=== PATIENT | female | born 1965 | race Caucasian/White ===

== ENCOUNTER 2016-04-11 21:43 | Observation (INO) | payer OTHER ==
[~2016-04-11] VITALS: Ht 157.5 cm; Wt 103.4 kg
[~2016-04-11 21:43] MED LIST: ASPI-480 PO; CHRO1TAB7 PO; LEVO75TA6 PO; LISI-593 PO; METH4TAB PO; NAPR-689 PO; TRAM-42 PO; VARE1TAB19; [UNRECOGNIZED DRUG - REMARK] PO
--- OUTSIDE RECORDS SUMMARY | 2016-04-11 21:49 | XMS REPORT | Continuity of Care Document ---
Author Author [facility] Organization [facility] Address Unknown Phone Unavailable Allergies Medications Problems Procedures Results Encounters ACCT No. Visit Date/Time Discharge Status Pt. Type Provider Facility Loc./Unit Complaint [id number] 05/18/2013 22:03:00 2013 10:50:00 DIS Inpatient [id number] 08/26/2012 07:39:00 2012 23:59:59 CLS Outpatient [id number] 08/13/2012 09:48:00 2012 23:59:59 CLS Outpatient
--- NOTE | 2016-04-11 22:27 | ED Cough/URI ---
General Chief Complaint: Respiratory Problems Stated Complaint: PNEUMONIA;VOMITING;COUGH Nursing Triage Note: PT C/O SOA, FEVER, COUGH, FOR 3 WEEKS. Source: patient Exam Limitations: no limitations History of Present Illness Time seen by provider: 22:23 Initial Comments Patient complains of cough productive of yellow sputum and shortness of air weakness malaise for the past 2 weeks. It is getting worse. She reports subjective fevers. Allergies and Home Medications Allergies Coded Allergies: hydrocodone (Verified Allergy, Unknown, 09/06/08) Home Medications Naproxen 500 Mg Tablet #0 500 MG PO Q12H PRN PRN PAIN Prescribed by: MARGARITO LEDESMA on 05/19/13 0334 Tramadol HCl 50 Mg Tablet #30 50 MG PO Q6H PRN PRN PAIN Prescribed by: AKANKSHA MONTAGUE on 03/22/15 1718 Constitutional: fever malaise weakness Respiratory: cough Cardiovascular: no symptoms reported Genitourinary: no symptoms reported All Other Systems Reviewed Negative Unless Noted: Yes Past Lboxtrl-Trmdhb-Rrmwwn Hx Patient Social History Recent Foreign Travel: No Contact w/Someone Who Travel: No Recent Infectious Disease Expo: No Immunizations Up To Date Date of Pneumonia Vaccine: Nov 18, 2010 Date of Influenza Vaccine: Nov 18, 2012 Seasonal Allergies Seasonal Allergies: Yes Surgeries HX Surgeries: Yes (JAWS RECONSTRUCTED 14 YRS OLD) Surgeries: Gallbladder Respiratory Hx Respiratory Disorders: Yes Respiratory Disorders: Asthma, COPD Cardiovascular Hx Cardiac Disorders: Yes Cardiac Disorders: Hypertension Neurological Hx Neurological Disorders: No Reproductive System Hx Reproductive Disorders: No Sexually Transmitted Disease: No HIV/AIDS: No Female Reproductive Disorders: Denies Genitourinary Hx Genitourinary Disorders: No Gastrointestinal Hx Gastrointestinal Disorders: No Musculoskeletal Hx Musculoskeletal Disorders: Yes Musculoskeletal Disorders: Arthritis Endocrine Hx Endocrine Disorders: Yes (obesity, borderline diabetes) Endocrine Disorders: Adrenal Disease, Hyperthyroidism HEENT HX ENT Disorders: No Cancer Hx Cancer: No Psychosocial Hx Psychiatric Problems: No Integumentary HX Skin/Integumentary Disorder: No Blood Transfusions Hx Blood Disorders: No Reviewed Nursing Assessment Reviewed/Agree w Nursing PMH: Yes Family Medical History Family Medial History: Cancer 03 MOTHER Chest pain 03 FATHER 03 MOTHER Congestive heart failure 03 MOTHER Family history: Cardiovascular disease 03 FATHER Family history: Diabetes mellitus 03 FATHER 03 MOTHER Family history: Hypertension 03 FATHER 03 MOTHER Heart disease 03 FATHER History of - respiratory disease 03 FATHER 03 MOTHER Myocardial infarction 03 FATHER Stroke 03 MOTHER Physical Exam Vital Signs Vital Sign - Last 12Hours 04/11/16 22:07 Temp 99.3 Pulse 101 Resp 20 B/P 199/107 Pulse Ox 95 O2 Delivery Room Air Capillary Refill : Less Than 3 Seconds General Appearance: WD/WN mild distress (coughing nonstop) HEENT: pharynx normal Neck: supple Respiratory: decreased breath sounds wheezing expiration Cardiovascular: regular rate, rhythm no edema Gastrointestinal: non tender soft Extremities: normal inspection Neurologic/Psychiatric: alert normal mood/affect Skin: normal color warm/dry Progress/Results/Core Measures Results/Orders My Orders Orders-REBEL BURGOS MD Chest Pa/Lat (2 View) (04/11/16 22:13) Cbc With Automated Diff (04/11/16 22:29) Comprehensive Metabolic Panel (04/11/16 22:29) Lipase (04/11/16 22:29) Ua Culture If Indicated (04/11/16 22:29) Blood Culture (04/11/16 22:29) Magnesium (04/11/16 22:29) Chest 1 View, Ap/Pa Only (04/11/16 22:29) Ekg Tracing (04/11/16 22:29) Methylprednisolone Sod Succ (Solu-Medrol (04/11/16 22:55) Ceftriaxone Injection (Rocephin Injectio (04/11/16 22:55) Albuterol/Ipra Inhalation Soln (Duoneb I (04/11/16 22:58) Vital Signs/I&O Vital Sign - Last 12Hours 04/11/16 22:07 Temp 99.3 Pulse 101 Resp 20 B/P 199/107 Pulse Ox 95 O2 Delivery Room Air Blood Pressure Mean: 137 Diagnostic Imaging Comments Chest x-ray shows nothing acute Departure Communication Time/Spoke to Admitting Phy: 22:40 Communication I spoke with Dr. Preston who agrees to admit Impression Impression: Primary Impression: Acute exacerbation of chronic obstructive pulmonary disease (COPD) Disposition: 09 ADMITTED INPATIENT Condition: Stable Decision to Admit Reason: Admit from ER (General) Decision to Admit/Date: Apr 11, 2016 Time/Decision to Admit Time: 23:59 Departure-Patient Inst. Referrals: GERARDO PRESTON DO (PCP/Family) Primary Care Physician REBEL BURGOS MD Apr 11, 2016 22:27
[2016-04-11] MEDS ORDERED: cefTRIAXone 1 GM (ROCEPHIN) VIAL ONE (22:55)
[2016-04-11] MEDS ORDERED: methylPREDNISolone 125 MG (Solu-MEDROL) VIAL ONE (22:55)
[2016-04-11] MEDS ORDERED: RT-ALBUTEROL/IPRATROPIUM 3 ML (DUONEB) VIAL ONE (22:58)
[2016-04-11 23:55] VITALS: BP 173/85
[2016-04-12 00:10] LABS: POTASSIUM 3.6 MMOL/L (3.6-5.0); SODIUM 136 MMOL/L (135-145)
[2016-04-12 00:11] LABS: ALANINE AMINOTRANSFERASE 24 U/L (0-55); ALBUMIN 3.9 G/DL (3.2-4.5); ANION GAP 11 MMOL/L (5-14); ASPARTATE AMINO TRANSFERASE 24 U/L (5-34); BILIRUBIN,TOTAL 0.3 MG/DL (0.1-1.0); BLOOD UREA NITROGEN 9 MG/DL (7-18); BUN/CREATININE RATIO 11; CARBON DIOXIDE 23 MMOL/L (21-32); CHLORIDE 102 MMOL/L (98-107); CREATININE SERUM 0.83 MG/DL (0.60-1.30); GFR ESTIMATED > 60; GLUCOSE 177 MG/DL (70-105); LIPASE 13 U/L (8-78); TOTAL PROTEIN 7.1 G/DL (6.4-8.2)
[2016-04-12 00:18] LABS: LYMPHOCYTES % (AUTO) 17 % (12-44); MEAN CORPUSCULAR HEMOGLOBIN 31 PG (25-34); MEAN CORPUSCULAR HGB CONC 33 G/DL (32-36); MEAN CORPUSCULAR VOLUME 96 FL (80-99); NEUTROPHILS % (AUTO) 74 % (42-75); PLATELET COUNT 283 10^3/uL (130-400); RED BLOOD COUNT 4.64 10^6/uL (4.35-5.85); RED CELL DISTRIBUTION WIDTH 14.9 % (10.0-14.5); WHITE BLOOD COUNT 9.6 10^3/uL (4.3-11.0)
[2016-04-12 00:19] LABS: BASOPHILS % (AUTO) 0 % (0-10); EOSINOPHILS # (AUTO) 0.3 10^3/uL (0.0-0.3); EOSINOPHILS % (AUTO) 3 % (0-10); LYMPHOCYTES # (AUTO) 1.6 X 10^3 (1.0-4.0); MONOCYTES # (AUTO) 0.6 X 10^3 (0.0-1.0); MONOCYTES % (AUTO) 6 % (0-12); NEUTROPHILS # (AUTO) 7.1 X 10^3 (1.8-7.8)
[2016-04-12] MEDS ORDERED: LEVA0.6313 IH (00:32)
[2016-04-12] MEDS ORDERED: AMOX1TAB12 PO (00:32)
[2016-04-12] MEDS ORDERED: DICL50TA4 PO (00:32)
[2016-04-12] MEDS ORDERED: BUDE10.2 IH (00:32)
[2016-04-12] MEDS ORDERED: RT-ALBUTEROL/IPRATROPIUM 3 ML (DUONEB) VIAL INH PRN (01:15)
[2016-04-12] MEDS ORDERED: ACETAMINOPHEN 500 MG TAB (TYLENOL) PO PRN (01:15)
[2016-04-12] MEDS: RT-ALBUTEROL/IPRATROPIUM 3 ML (DUONEB) VIAL INH SCH ×6 (02:14→23:01)
[2016-04-12 04:00] VITALS: BP 167/72
--- NOTE | 2016-04-12 07:29 | Diagnostic Imaging Report ---
EXAM: CHEST PA/LAT (2 VIEW) INDICATION: Cough and congestion. COMPARISON: Chest radiographs 03/22/2015. FINDINGS: Normal heart size and pulmonary vascularity. No focal pulmonary opacity, pleural effusion or pneumothorax. Bronchial wall thickening. Stable left fourth rib fracture. Cholecystectomy clips. IMPRESSION: Bronchial wall thickening consistent with small airway inflammation. Remainder stable. Dictated by: Dictated on workstation # [id number]
[2016-04-12 08:00] VITALS: BP 168/91
[2016-04-12] MEDS ORDERED: CHOL20003 PO (08:33)
[2016-04-12] MEDS ORDERED: POTA99TA21 PO (08:33)
[2016-04-12 12:48] VITALS: BP 159/77
[2016-04-12] MEDS ORDERED: methylPREDNISolone 40 MG/ML (Solu-MEDROL) VIAL ONE (12:53)
[2016-04-12] MEDS ORDERED: ETODOLAC 200 MG (LODINE) CAP PO PRN (13:00)
[2016-04-12] MEDS ORDERED: methylPREDNISolone 40 MG/ML (Solu-MEDROL) VIAL IV NR (13:00)
[2016-04-12] MEDS ORDERED: NON-FORMULARY MEDICATION 1 EA EA (Diclofenac Potassium 50 MG) PO PRN (13:00)
[2016-04-12 16:00] VITALS: BP 131/76
[2016-04-12 17:19] LABS: BILIRUBIN,URINE NEGATIVE (NEGATIVE); KETONES,URINE NEGATIVE (NEGATIVE); LEUKOCYTE ESTERASE ,URINE NEGATIVE (NEGATIVE); NITRITE,URINE NEGATIVE (NEGATIVE); PH,URINE 5 (5-9); PROTEIN,URINE NEGATIVE (NEGATIVE); UROBILINOGEN,URINE NORMAL (NORMAL)
[2016-04-12] MEDS: methylPREDNISolone 40 MG/ML (Solu-MEDROL) VIAL IV SCH ×2 (17:30→23:18)
--- NOTE | 2016-04-12 17:47 | History & Physicial ---
History of Present Illness History of Present Illness Reason for visit/HPI This is a 50 year old female who presented to the emergency room with worsening cough, congestion and shortness of air. She reported at least a 3 week history of cough and congestion with fevers but stated she had to work so she did not seek medical attention. Upon examination in the emergency room she was hypertensive with wheezing and rhonchi. Her CXR showed no acute pneumonia but it was decided to admit her for acute exacerbation of COPD. Date of Admission Apr 11, 2016 at 11:30 pm I consulted on this patient on 04/12/16 17:41 Attending Physician Angella Preston DO Admitting Physician Angella Preston DO Consult Allergies and Home Medications Allergies Coded Allergies: hydrocodone (Verified Allergy, Unknown, 09/06/08) Sulfa (Sulfonamide Antibiotics) (Unverified Adverse Reaction, Unknown, ) Home Medications Budesonide/Formoterol Fumarate 10.2 Gm Hfa.aer.ad 2 PUFF IH BID (Reported) Cholecalciferol (Vitamin D3) 2,000 Unit Capsule 2,000 UNIT PO DAILY (Reported) Diclofenac Potassium 50 Mg Tablet 50 MG PO TID PRN PRN PAIN (Reported) Levalbuterol HCl 0.63 Mg/3 Ml Vial.neb 1 UNIT IH Q6H PRN PRN SHORTNESS OF BREATH (Reported) Potassium Gluconate 99 Mg Tablet 99 MG PO DAILY (Reported) Past Bcftiwx-Uhhqlq-Poedio Hx Patient Social History Alcohol Use: Denies Use Recreational Drug Use: No Drug of Choice: former meth user Smoking Status: Current Everyday Smoker Type Used: Cigarettes Physical Abuse Screen: No Sexual Abuse: No Recent Foreign Travel: No Contact w/other who traveled: No Recent Hopitalizations: No Recent Infectious Disease Expo: No Immunizations Up To Date Date of Pneumonia Vaccine: Nov 18, 2010 Date of Influenza Vaccine: Oct 20, 2015 Seasonal Allergies Seasonal Allergies: Yes Surgeries HX Surgeries: Yes (JAWS RECONSTRUCTED 14 YRS OLD) Surgeries: Gallbladder Respiratory Hx Respiratory Disorders: Yes Cardiovascular Hx Cardiovascular Disorders: Yes Cardiac Disorders: Hypertension Neurological Hx Neurological Disorders: No Reproductive System Hx Reproductive Disorders: No Sexually Transmitted Disease: No HIV/AIDS: No Female Reproductive Disorders: Denies Genitourinary Hx Genitourinary Disorders: No Gastrointestinal Hx Gastrointestinal Disorders: No Musculoskeletal Hx Musculoskeletal Disorders: Yes Musculoskeletal Disorders: Arthritis, Fractures Endocrine Hx Endocrine Disorders: Yes (obesity, borderline diabetes) Endocrine Disorders: Adrenal Disease, Hyperthyroidism HEENT HX ENT Disorders: No Cancer Hx Cancer: No Psychosocial Hx Psychiatric Problems: No Behavioral Health Disorders: Anxiety, Depression Integumentary HX Skin/Integumentary Disorder: No Blood Transfusions Hx Blood Disorders: No Adverse Reaction to a Blood Tr: No Reviewed Nursing Assessment Reviewed/Agree w Nursing PMH: Yes Family Medical History Family Hx: Cancer 03 MOTHER Chest pain 03 FATHER 03 MOTHER Congestive heart failure 03 MOTHER Family history: Cardiovascular disease 03 FATHER Family history: Diabetes mellitus 03 FATHER 03 MOTHER Family history: Hypertension 03 FATHER 03 MOTHER Heart disease 03 FATHER History of - respiratory disease 03 FATHER 03 MOTHER Myocardial infarction 03 FATHER Stroke 03 MOTHER Constitutional: fever weakness EENTM: nose congestion Respiratory: cough dyspnea on exertion short of breath wheezing Cardiovascular: No no symptoms reported, No see HPI, No chest pain, No edema, No Hx of Intervention, No palpitations, No syncope, No vascular heart diseas, No other Gastrointestinal: No RUQ, No LUQ, No RLQ, No LLQ, No no symptoms reported, No see HPI, No abdominal pain, No constipation, No diarrhea, No dysphagia, No hematemesis, No heartburn, No jaundice, No loss of appetite, No melena, No nausea, No vomiting, No other Genitourinary: No no symptoms reported, No see HPI, No decreased output, No discharge, No dysuria, No frequency, No hematuria, No hesitancy, No incontinence , No nocturia, No pain, No other Musculoskeletal: joint pain Skin: No no symptoms reported, No see HPI, No change in color, No change in hair/nails, No dryness, No hx of skin cancer, No lesions, No lumps, No pruritus , No rash, No other Psychiatric/Neurological: Weakness Physical Exam Vital Signs Vital Sign - Last 12Hours 04/11/16 04/11/16 22:07 22:57 Temp 99.3 Pulse 101 Resp 20 B/P 199/107 Pulse Ox 95 O2 Delivery Room Air O2 Flow Rate 2 Capillary Refill : Less Than 3 Seconds General Appearance: Mild Distress HEENT: Pharyngeal Erythema Neck: Supple Respiratory: Decreased Breath Sounds Rhonci Wheezing Cardiovascular: Regular Rate, Rhythm Gallop/S4 Gastrointestinal: Normal Bowel Sounds Non Tender Soft Rectal: Deferred Back: No CVA Tenderness Extremity: Non Tender No Calf Tenderness No Pedal Edema Neurologic/Psychiatric: Alert Oriented x3 Skin: Normal Color Lymphatic: No Adenopathy Comments Laboratory Tests 04/11/16 22:25: Alanine Aminotransferase (ALT/SGPT) 24, Albumin 3.9, Alkaline Phosphatase 91, Anion Gap 11, Aspartate Amino Transf (AST/SGOT) 24, BUN/Creatinine Ratio 11, Basophils # (Auto) 0.0, Basophils (%) (Auto) 0, Blood Urea Nitrogen 9, Calcium Level 9.0, Carbon Dioxide Level 23, Chloride Level 102, Creatinine 0.83, Eosinophils # (Auto) 0.3, Eosinophils (%) (Auto) 3, Estimat Glomerular Filtration Rate > 60, Glucose Level 177H, Hematocrit 44, Hemoglobin 14.5, Lipase 13, Lymphocytes # (Auto) 1.6, Lymphocytes (%) (Auto) 17, Mean Corpuscular Hemoglobin 31, Mean Corpuscular Hemoglobin Concent 33, Mean Corpuscular Volume 96, Mean Platelet Volume 12.0H, Monocytes # (Auto) 0.6, Monocytes (%) (Auto) 6, Neutrophils # (Auto) 7.1, Neutrophils (%) (Auto) 74, Platelet Count 283, Potassium Level 3.6, Red Blood Count 4.64, Red Cell Distribution Width 14.9H, Sodium Level 136, Total Bilirubin 0.3, Total Protein 7.1, White Blood Count 9.6 04/11/16 22:29: Magnesium Level 2.1 04/12/16 17:05: Urine Bacteria NEGATIVE, Urine Bilirubin NEGATIVE, Urine Casts NONE, Urine Clarity CLEAR, Urine Color YELLOW, Urine Crystals NONE, Urine Culture Indicated NO, Urine Glucose (UA) 4+H, Urine Ketones NEGATIVE, Urine Leukocyte Esterase NEGATIVE, Urine Mucus NEGATIVE, Urine Nitrite NEGATIVE, Urine Protein NEGATIVE, Urine RBC NONE, Urine RBC (Auto) 1+H, Urine Specific [place] 1.015L, Urine Urobilinogen NORMAL, Urine WBC NONE, Urine pH 5 Microbiology 04/12/16 Blood Culture - Preliminary, Resulted No growth Assessment/Plan Assessment and Plan 1. Acute Exacerbation of COPD--admit for oxygen, SVNS, IV solumedrol 2. Acute Bronchitis--will cover with Rocephin and Doxycycline since has been productive and going on for 3 weeks Clinical Quality Measures DVT/VTE Risk/Contraindication: Risk Factor Score Per Nursin RFS Level Per Nursing on Admit: 4+=Very High ANGELLA PRESTON DO Apr 12, 2016 5:47 pm
[2016-04-12] MEDS: cefTRIAXone INJECTION 1,000 MG in NS (IVPB) 50 ML IV SCH (18:38)
[2016-04-12] MEDS: DOXYCYCLINE 100 MG (VIBRAMYCIN) TABLET PO SCH (18:38)
[2016-04-12 19:28] VITALS: BP 147/70
[2016-04-12] MEDS ORDERED: RT-SYMBICORT 160/4.5 MCG INHALER PER PUFF IH SCH (21:00)
[2016-04-13] VITALS: BP 147/71
[2016-04-13] MEDS: RT-ALBUTEROL/IPRATROPIUM 3 ML (DUONEB) VIAL INH SCH ×3 (02:12→10:48)
[2016-04-13] MEDS: RT-ADVAIR HFA 115/21 MCG PER PUFF IH SCH ×2 (02:13→07:12)
[2016-04-13 04:05] VITALS: BP 136/63
[2016-04-13] MEDS: DOXYCYCLINE 100 MG (VIBRAMYCIN) TABLET PO SCH (06:21)
[2016-04-13] MEDS: methylPREDNISolone 40 MG/ML (Solu-MEDROL) VIAL IV SCH ×2 (06:21→11:14)
[2016-04-13 08:00] VITALS: BP 138/63
[2016-04-13] MEDS: cefTRIAXone INJECTION 1,000 MG in NS (IVPB) 50 ML IV SCH (08:57)
[2016-04-13 12:00] VITALS: BP_SYST 118; BP_SYST 176; BP_DIAS 58; BP_DIAS 77
[2016-04-13] MEDS ORDERED: PRD20T PO (12:36)
[2016-04-13] MEDS ORDERED: DOXY100T2 PO (12:36)
--- NOTE | 2016-04-13 12:38 | Discharge Inst-Simple/Standard ---
Discharge Inst-Standard Discharge Medications New, Converted or Re-Newed RX: Transmitted to Pharmacy Patient Instructions/Follow Up Plan of Care/Instructions/FU: Fwup 1 week Activity as Tolerated: Yes Discharge Diet: No Restrictions Planned Outpatient Orders/Ref. Pneu Vac Indicated: Yes GERARDO CRAVEN DO Apr 13, 2016 12:38 pm
--- NOTE | 2016-04-13 12:43 | Discharge Summary ---
Diagnosis/Chief Complaint Date of Admission Apr 11, 2016 at 11:55 pm Date of Discharge Discharge Date: Apr 13, 2016 Admission Diagnosis Admission Diagnosis 1. Acute Exacerbation of COPD--admit for oxygen, SVNS, IV solumedrol 2. Acute Bronchitis--will cover with Rocephin and Doxycycline since has been productive and going on for 3 weeks Discharge Diagnosis 1. Acute Exacerbation of COPD--improved 2. Acute Bronchitis--improved 3. Tobacco Abuse--ongoing Reason Hospital Visit This is a 50 year old female who presented to the emergency room with worsening cough, congestion and shortness of air. She reported at least a 3 week history of cough and congestion with fevers but stated she had to work so she did not seek medical attention. Upon examination in the emergency room she was hypertensive with wheezing and rhonchi. Her CXR showed no acute pneumonia but it was decided to admit her for acute exacerbation of COPD. Discharge Summary Hospital Course Hospital Course This is a 50 year old female who presented to the emergency room with worsening cough, congestion and shortness of air. She reported at least a 3 week history of cough and congestion with fevers but stated she had to work so she did not seek medical attention. Upon examination in the emergency room she was hypertensive with wheezing and rhonchi. Her CXR showed no acute pneumonia but it was decided to admit her for acute exacerbation of COPD. She was covered with rocephin and doxycycline for acute bronchitis due to 3 weeks of symptoms. She was also given IV solumedrol and nebulizer treatments with duoneb. She was on oxygen during her hospital stay except when she left the floor to smoke. By the day of discharge, she was feeling much better and was down smoking and ambulating in the hospital for at least an hour without oxygen. When she returned to the room, her oxygen saturation was 93% on room air. She was stated she was feeling much better and ready to go home. Labs Laboratory Tests 04/11/16 22:25: Glucose Level 177H, Mean Platelet Volume 12.0H, Red Cell Distribution Width 14.9H 04/11/16 22:29: 04/12/16 17:05: Urine Glucose (UA) 4+H, Urine RBC (Auto) 1+H, Urine Specific [place] 1.015L Procedures None. Discharge Physical Examination Allergies: Coded Allergies: hydrocodone (Verified Allergy, Unknown, 09/06/08) Sulfa (Sulfonamide Antibiotics) (Unverified Adverse Reaction, Unknown, ) Vitals & I&Os Vital Signs Date Time Temp Pulse Resp B/P Pulse Ox O2 Delivery O2 Flow Rate FiO2 04/13/16 10:51 89 3.00 04/13/16 09:31 Nasal Cannula 04/13/16 08:00 97.5 98 20 138/63 General Appearance: Alert, Oriented X3, Cooperative, No Acute Distress Respiratory: Other (wheezing but much improved and much better lung aeration) Cardiovascular: Regular Rate Psych/Mental Status: Mental Status NL, Mood NL Discharge Home Medications Reviewed and agree with Discharge Medication list on patient's Discharge Instruction sheet Instructions to Patient/Family Please see electonic discharge instructions given to patient. Clinical Quality Measures DVT/VTE Risk/Contraindication: Risk Factor Score Per Nursin RFS Level Per Nursing on Admit: 4+=Very High GERARDO CRAVEN DO Apr 13, 2016 12:42 pm
== END 2016-04-13 12:26 | disposition home or self-care (01) ==
LOC: EDUNIT# 21:43 → ER 21:45 → UNDOADMOB 23:30 → 4TH 23:30
PROVIDERS: ADMIT Family Medicine; ATTEND Family Medicine
DX: J44.1 Chronic obstructive pulmonary disease with (acute) exacerbation (principal); J44.0 Chronic obstructive pulmonary disease with (acute) lower respiratory infection; J20.9 Acute bronchitis, unspecified; I10 Essential (primary) hypertension; F17.210 Nicotine dependence, cigarettes, uncomplicated
CPT/HCPCS: 36415; 71020; 80053; 81000; 83690; 83735; 85025; 87040; 94640; 94760; 96365; 96375; G0378

== ENCOUNTER → 2017-01-24 | Outpatient (CLI) | payer OTHER ==
[~2017-01-24] MED LIST changes: +AMOX1TAB12 PO; +BUDE10.2 IH; +CHOL20003 PO; +DICL50TA4 PO; +DOXY100T2 PO; +LEVA0.6313 IH; +POTA99TA21 PO; +PRD20T PO
[2017-01-24 13:18] LABS: ALANINE AMINOTRANSFERASE 33 U/L (0-55); ALBUMIN 4.1 GM/DL (3.2-4.5); ANION GAP 9 MMOL/L (5-14); ASPARTATE AMINO TRANSFERASE 32 U/L (5-34); BILIRUBIN,TOTAL 0.3 MG/DL (0.1-1.0); BLOOD UREA NITROGEN 10 MG/DL (7-18); BUN/CREATININE RATIO 13; CALCIUM 9.2 MG/DL (8.5-10.1); CARBON DIOXIDE 24 MMOL/L (21-32); CHLORIDE 104 MMOL/L (98-107); CREATININE SERUM 0.78 MG/DL (0.60-1.30); GFR ESTIMATED > 60; GLUCOSE 114 MG/DL (70-105); POTASSIUM 3.9 MMOL/L (3.6-5.0); SODIUM 137 MMOL/L (135-145)
== END ==
LOC: LAB 12:40
PROVIDERS: ATTEND Family Medicine
DX: E11.9 Type 2 diabetes mellitus without complications (principal); E03.9 Hypothyroidism, unspecified
CPT/HCPCS: 36415; 80053; 83036; 84443

== ENCOUNTER 2017-06-02 15:36 | Emergency (ER) | payer OTHER ==
[~2017-06-02] VITALS: Ht 154.9 cm; Wt 94.8 kg
--- OUTSIDE RECORDS SUMMARY | 2017-06-02 15:43 | XMS REPORT ---
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 Medications Not available. Problem List Not available. Vital Signs Date Time BP-Sys(mm[Hg] BP-Anna(mm[Hg]) HR(bpm) RR(rpm) Temp WT HT HC BMI BSA BMI Percentile O2 Sat(%) 06/08/2016 10:21:00 AM 145 mmHg 92 mmHg 92 bpm 18 rpm 97.4 F 222 lbs 61 in 41.95 kg/m2 2.08 m2 98 % Social History Name Description Comments Tobacco Current every day smoker Alcohol Never Uses seatbelts History of Procedures Not available. Results Summary Not available. History Of Immunizations Not available. History of Past Illness Name Date of Onset Comments [employer] employment physical Jun 08 2016 10:22AM Payers Insurance Name Company Name Plan Name Plan Number Policy Number Policy Group Number Start Date [facility] PM[facility] PHYS/DS [employer]RV Phys N/A History of Encounters Visit Date Visit Type Provider 06/08/2016 Office visit MABLE WOMACK
[2017-06-02] MEDS ORDERED: ACETAMINOPHEN 325 MG TABLET PO STA (16:05)
--- NOTE | 2017-06-02 16:12 | ED General ---
General Chief Complaint: Chest Wall/Rib Pain Stated Complaint: FELL, R SIDE PAIN Nursing Triage Note: PT REPORTS SHE FELL SATURDAY AND INJURED R RIBCAGE. PT REPORTS SHE DOES HEAVY LIFTING FOR WORK AND HAS NOT BEEN ABLE TO PERFORM. PT REPORTS SHE HAS AN OLD R RIB FRACTURE FROM 2 YEARS AGO. Nursing Sepsis Screen: No Definite Risk History of Present Illness Date Seen by Provider: Jun 02, 2017 Time Seen by Provider: 15:55 Initial Comments 51-year-old female reports falling and landing on her right ribs 412 18 in her yard. She has a history of right rib fractures approximately 2 years ago. 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 She takes diclofenac for pain , she has not had any since her fall. She denies taking acetaminophen or anything else for the pain. She denies any shortness of breath, she does report a recent cough. She has had approximately 25 pound weight loss since starting me. She has been told she is borderline COPD. She smokes cigarettes. Patient requesting note for work, she has been unable to complete her shift since 05/31/17. Timing/Duration: 2-3 Days Severity: Mild Associated Systoms: Chest Pain (Right lateral and posterior mid to lower rib pain) Allergies and Home Medications Allergies Coded Allergies: hydrocodone (Verified Allergy, Unknown, 09/06/08) Sulfa (Sulfonamide Antibiotics) (Unverified Adverse Reaction, Unknown, ) Home Medications Budesonide/Formoterol Fumarate 10.2 Gm Hfa.aer.ad, 2 PUFF IH BID, (Reported) Cholecalciferol (Vitamin D3) 2,000 Unit Capsule, 2,000 UNIT PO DAILY, (Reported) Diclofenac Potassium 50 Mg Tablet, 50 MG PO TID PRN for PAIN, (Reported) Doxycycline Hyclate 100 Mg Tablet, 100 MG PO BID@ Prescribed by: GERARDO CRAVEN on 04/13/16 1236 Levalbuterol HCl 0.63 Mg/3 Ml Vial.neb, 1 UNIT IH Q6H PRN for SHORTNESS OF BREATH, (Reported) Potassium Gluconate 99 Mg Tablet, 99 MG PO DAILY, (Reported) Prednisone 20 Mg Tab, 20 MG PO BID Prescribed by: GERARDO CRAVEN on 04/13/16 1236 Patient Home Medication List Home Medication List Reviewed: Yes Review of Systems Constitutional: no symptoms reported, see HPI Respiratory: see HPI, other (right posterior and lateral rib pain) All Other Systems Reviewed Negative Unless Noted: Yes Past Dxmrmbu-Prznso-Eptunk Hx Patient Social History Alcohol Use: Denies Use Recreational Drug Use: Yes (SMOKES 3/4 PPD) Drug of Choice: former meth user Smoking Status: Current Everyday Smoker Type Used: Cigarettes Recent Foreign Travel: No Contact w/Someone Who Travel: No Recent Infectious Disease Expo: No Recent Hopitalizations: No Physical Abuse: No Sexual Abuse: No Mistreated: No Fear: No Immunizations Up To Date Tetanus Booster (TDap): Unknown PED Vaccines UTD: No Date of Pneumonia Vaccine: Nov 18, 2010 Date of Influenza Vaccine: Oct 20, 2015 Seasonal Allergies Seasonal Allergies: Yes Past Medical History Surgeries: Yes (JAW) Gallbladder Respiratory: Yes Asthma, Pneumonia, Chronic Bronchitis, COPD Currently Using CPAP: No Currently Using BIPAP: No Cardiac: Yes Hypertension Neurological: No Reproductive Disorders: No Female Reproductive Disorders: Denies Sexually Transmitted Disease: No HIV/AIDS: No Genitourinary: No Gastrointestinal: No Musculoskeletal: Yes Arthritis, Fractures Endocrine: No Adrenal Disease, Hyperthyroidism HEENT: No Cancer: No Psychosocial: Yes Anxiety, Depression Nursing Suicide Risk Score: 0 Integumentary: No Blood Disorders: No Adverse Reaction/Blood Tranf: No Family Medical History Reviewed Nursing Family Hx Cancer 03 MOTHER Chest pain 03 FATHER 03 MOTHER Congestive heart failure 03 MOTHER Family history: Cardiovascular disease 03 FATHER Family history: Diabetes mellitus 03 FATHER 03 MOTHER Family history: Hypertension 03 FATHER 03 MOTHER Heart disease 03 FATHER History of - respiratory disease 03 FATHER 03 MOTHER Myocardial infarction 03 FATHER Stroke 03 MOTHER Physical Exam Vital Signs Vital Signs - First Documented 06/02/17 15:51 Temp 97.2 Pulse 79 Resp 18 B/P (MAP) 149/97 (114) Pulse Ox 99 Capillary Refill : Less Than 3 Seconds General Appearance: No Apparent Distress, WD/WN HEENT: PERRL/EOMI, TMs Normal, Normal ENT Inspection Neck: Full Range of Motion, Normal Inspection, Non Tender, Supple Respiratory: Lungs Clear, Normal Breath Sounds, No Accessory Muscle Use, Other (Rib pain, lower 1/3 from lateral to posterior. No ecchymosis noted. ) Cardiovascular: Regular Rate, Rhythm, No Edema, No Murmur, Normal Peripheral Pulses Gastrointestinal: Normal Bowel Sounds, Non Tender, Soft Neurologic/Psychiatric: Alert, Oriented x3, No Motor/Sensory Deficits, Normal Mood/Affect Skin: Normal Color, Warm/Dry Lymphatic: No Adenopathy Progress/Results/Core Measures Suspected Sepsis Recent Fever Within 48 Hours: No Infection Criteria Present: None New/Unexplained Altered Menta: No Sepsis Screen: No Definite Risk SIRS Temperature:97.2 Pulse: 79 Respiratory Rate: 18 Blood Pressure 149 /97 Mean: 114 Results/Orders My Orders Orders - BABAK WEST Ribs/Unilateral With Chest (06/02/17 16:04) Acetaminophen Tablet/Caplet (Tylenol T (06/02/17 16:05) Vital Signs/I&O 06/02/17 06/02/17 15:51 16:54 Temp 97.2 Pulse 79 69 Resp 18 16 B/P (MAP) 149/97 (114) 138/89 Pulse Ox 99 97 Capillary Refill : Less Than 3 Seconds Blood Pressure Mean: 114 Progress Note : Time: 15:55 Progress Note Initial evaluation completed, recommended x-rays of the right ribs and chest, acetaminophen 650 mg orally for pain. 1620 Patient refused Tylenol for pain, states she can take that at home after discharge. 1645 discharge instructions and return precautions reviewed with patient, all questions answered. Diagnostic Imaging Diagonstic Imaging: Xray Plain Films/CT/US/NM/MRI: chest, other (rib) Comments NAME: SHANNA GRUBER [facility] REC#: [id number] PHYSICIAN: BABAK WEST CC: BABAK WEST; LISA PLATT MD Page 1 of 1 RADIOLOGY REPORT VIA [facility]. [place], [place] CC: BABAK WEST; LISA PLATT MD Page 1 of 1 RADIOLOGY REPORT NAME: SHANNA GRUBER [facility] REC#: [id number] PT STATUS: REG ER : 1965 PHYSICIAN: BABAK WEST ADMIT DATE: 06/02/17/ER Signed Date of Exam: 06/02/17 RIBS/UNILATERAL WITH CHEST EXAMINATION: Ribs with PA chest, 4 images. COMPARISON: Chest and rib radiographs 04/11/2016. HISTORY: 51-year-old female, right rib pain. FINDINGS: Heart size and mediastinal contours are unremarkable. There is no identified pneumothorax. There is no large pleural effusion. There is no identified focal airspace consolidation. There is a chronic appearing left fourth rib deformity which is unchanged since comparison exam. There is no identified right rib fracture. Right upper quadrant surgical clips likely reflect prior cholecystectomy. IMPRESSION: 1. No identified acute rib fracture. 2. Chronic appearing and redemonstrated left fourth rib deformity. 3. No identified acute cardiopulmonary abnormality. Dictated by: Dictated on workstation # [id number] Dict: 06/02/17 1615 Trans: 06/02/17 1623 Interpreted by: LISA PLATT MD Electronically signed by: LISA PLATT MD 06/02/17 1623 Departure Impression Primary Impression: Rib pain Additional Impression: Fall Qualified Codes: W19.XXXA - Unspecified fall, initial encounter Disposition: 01 HOME, SELF-CARE Condition: Stable Departure-Patient Inst. Decision time for Depature: 16:30 Referrals: GERARDO CRAVEN DO (PCP/Family) Primary Care Physician Patient Instructions: Bruised Rib (DC) Add. Discharge Instructions: Use your Diclofenac for pain, additionally you may take acetaminophen 650 mg every 6 hours. Alternate heat and ice 20 minutes at a time to the area of pain on the right ribs. Follow-up with your primary care provider if symptoms are not improving or worsen. Return to emergency department for new problems or concerns. All discharge instructions reviewed with patient and/or family. Voiced understanding. Work/School Note: Work Release Form Date Seen in the Emergency Department: Jun 02, 2017 Return to Work: Jun 03, 2017 Restrictions: No Restrictions Copy Copies To 1: GERARDO CRAVEN AMY ARNP Jun 02, 2017 16:12
--- NOTE | 2017-06-02 16:22 | Diagnostic Imaging Report ---
EXAMINATION: Ribs with PA chest, 4 images. COMPARISON: Chest and rib radiographs 04/11/2016. HISTORY: 51-year-old female, right rib pain. FINDINGS: Heart size and mediastinal contours are unremarkable. There is no identified pneumothorax. There is no large pleural effusion. There is no identified focal airspace consolidation. There is a chronic appearing left fourth rib deformity which is unchanged since comparison exam. There is no identified right rib fracture. Right upper quadrant surgical clips likely reflect prior cholecystectomy. IMPRESSION: 1. No identified acute rib fracture. 2. Chronic appearing and redemonstrated left fourth rib deformity. 3. No identified acute cardiopulmonary abnormality. Dictated by: Dictated on workstation # [id number]
[2017-06-02 16:54] VITALS: BP 138/89
== END 2017-06-02 16:53 | disposition home or self-care (01) ==
LOC: EDUNIT# 15:36 → ER 15:39
DX: R07.81 Pleurodynia (principal); E05.90 Thyrotoxicosis, unspecified without thyrotoxic crisis or storm; I10 Essential (primary) hypertension; J44.9 Chronic obstructive pulmonary disease, unspecified; F17.210 Nicotine dependence, cigarettes, uncomplicated; Z87.01 Personal history of pneumonia (recurrent); Z86.39 Personal history of other endocrine, nutritional and metabolic disease; Z87.81 Personal history of (healed) traumatic fracture; Z98.890 Other specified postprocedural states; Z82.49 Family history of ischemic heart disease and other diseases of the circulatory system; Z79.52 Long term (current) use of systemic steroids; Z88.2 Allergy status to sulfonamides; Z88.5 Allergy status to narcotic agent; W19.XXXA Unspecified fall, initial encounter
CPT/HCPCS: 71101

== ENCOUNTER → 2017-06-06 | Outpatient (CLI) | payer OTHER ==
[2017-06-06 08:38] LABS: BASOPHILS % (AUTO) 0 % (0-10); EOSINOPHILS # (AUTO) 0.4 10^3/uL (0.0-0.3); EOSINOPHILS % (AUTO) 3 % (0-10); HEMATOCRIT 49 % (35-52); HEMOGLOBIN 16.4 G/DL (11.5-16.0); LYMPHOCYTES % (AUTO) 26 % (12-44); MEAN CORPUSCULAR HEMOGLOBIN 32 PG (25-34); MEAN CORPUSCULAR HGB CONC 34 G/DL (32-36); MEAN CORPUSCULAR VOLUME 95 FL (80-99); MEAN PLATELET VOLUME 11.1 FL (7.4-10.4); MONOCYTES # (AUTO) 0.8 X 10^3 (0.0-1.0); MONOCYTES % (AUTO) 7 % (0-12); NEUTROPHILS # (AUTO) 7.4 X 10^3 (1.8-7.8); NEUTROPHILS % (AUTO) 64 % (42-75); PLATELET COUNT 315 10^3/uL (130-400); RED BLOOD COUNT 5.14 10^6/uL (4.35-5.85); RED CELL DISTRIBUTION WIDTH 15.1 % (10.0-14.5); WHITE BLOOD COUNT 11.7 10^3/uL (4.3-11.0)
[2017-06-06 08:59] LABS: ALANINE AMINOTRANSFERASE 25 U/L (0-55); ALBUMIN 4.3 GM/DL (3.2-4.5); ALKALINE PHOSPHATASE 82 U/L (40-136); BILIRUBIN,TOTAL 0.7 MG/DL (0.1-1.0); BUN/CREATININE RATIO 14; CARBON DIOXIDE 21 MMOL/L (21-32); CHLORIDE 105 MMOL/L (98-107); GFR ESTIMATED > 60; GLUCOSE 134 MG/DL (70-105); SODIUM 135 MMOL/L (135-145); TOTAL PROTEIN 7.5 GM/DL (6.4-8.2)
[2017-06-06 09:20] LABS: FREE T4 (FREE THYROXINE) 0.97 NG/DL (0.70-1.48)
== END ==
LOC: LAB 08:19
PROVIDERS: ATTEND Family Medicine
DX: E11.9 Type 2 diabetes mellitus without complications (principal); E03.9 Hypothyroidism, unspecified
CPT/HCPCS: 36415; 80053; 82043; 83036; 84439; 84443; 85025

== ENCOUNTER → 2018-01-17 | Outpatient (CLI) | payer OTHER ==
[2018-01-17 11:04] LABS: BASOPHILS # (AUTO) 0.1 10^3/uL (0.0-0.1); BASOPHILS % (AUTO) 0 % (0-10); EOSINOPHILS # (AUTO) 0.4 10^3/uL (0.0-0.3); EOSINOPHILS % (AUTO) 3 % (0-10); HEMATOCRIT 51 % (35-52); HEMOGLOBIN 16.8 G/DL (11.5-16.0); LYMPHOCYTES % (AUTO) 33 % (12-44); MEAN CORPUSCULAR HEMOGLOBIN 32 PG (25-34); MEAN CORPUSCULAR HGB CONC 33 G/DL (32-36); MEAN CORPUSCULAR VOLUME 97 FL (80-99); MEAN PLATELET VOLUME 11.2 FL (7.4-10.4); MONOCYTES # (AUTO) 0.7 X 10^3 (0.0-1.0); MONOCYTES % (AUTO) 6 % (0-12); NEUTROPHILS % (AUTO) 58 % (42-75); PLATELET COUNT 331 10^3/uL (130-400); RED BLOOD COUNT 5.23 10^6/uL (4.35-5.85); RED CELL DISTRIBUTION WIDTH 15.2 % (10.0-14.5); WHITE BLOOD COUNT 12.2 10^3/uL (4.3-11.0)
[2018-01-17 11:26] LABS: ALANINE AMINOTRANSFERASE 25 U/L (0-55); ALBUMIN 4.3 GM/DL (3.2-4.5); ALKALINE PHOSPHATASE 81 U/L (40-136); AMYLASE 74 U/L (25-125); BILIRUBIN,TOTAL 0.4 MG/DL (0.1-1.0); BUN/CREATININE RATIO 14; CALCIUM 9.6 MG/DL (8.5-10.1); CARBON DIOXIDE 23 MMOL/L (21-32); CHLORIDE 102 MMOL/L (98-107); CREATININE SERUM 0.81 MG/DL (0.60-1.30); GFR ESTIMATED > 60; GLUCOSE 171 MG/DL (70-105); LIPASE 16 U/L (8-78); POTASSIUM 4.1 MMOL/L (3.6-5.0); SODIUM 137 MMOL/L (135-145); TOTAL PROTEIN 7.8 GM/DL (6.4-8.2)
== END ==
LOC: LAB 10:49
PROVIDERS: ATTEND Nurse Practitioner Family
DX: I10 Essential (primary) hypertension (principal); E11.9 Type 2 diabetes mellitus without complications; R10.9 Unspecified abdominal pain
CPT/HCPCS: 36415; 80053; 82150; 83036; 83690; 85025

== ENCOUNTER → 2018-01-20 | Outpatient (CLI) | payer OTHER ==
[~2018-01-20] MED LIST changes: +IOHEXOL 350 MG/ML 100 ML (OMNIPAQUE 350) VIAL IV ONE; +NS 250 ML (IVPB) BAG IV ONE; +RECEIVED CONTRAST (Hold Metformin) IV SCH
--- NOTE | 2018-01-20 14:49 | Diagnostic Imaging Report ---
PROCEDURE: CT abdomen and pelvis with contrast. TECHNIQUE: Multiple contiguous axial images were obtained through the abdomen and pelvis after administration of intravenous contrast. INDICATION: Right upper quadrant pain. COMPARISON: Comparison is made with prior CT from 04/26/2011. FINDINGS: Lung bases demonstrate some minimal linear scarring or atelectasis in the right lower lobe. The liver is enlarged at 22.4 cm cephalocaudal. There is diffuse low density throughout the liver consistent with hepatic steatosis. No discrete liver mass is identified. The gallbladder is surgically absent. No biliary ductal dilatation is seen. The pancreas and spleen are unremarkable. No adrenal mass is identified. The right kidney contains a 2.6 cm low-density lesion, most likely representing a cyst. Left kidney is unremarkable. The aorta is nonaneurysmal. No central retroperitoneal lymphadenopathy is seen. There are small shotty lymph nodes in the central retroperitoneum. No mesenteric lymphadenopathy is detected. Small and large bowel loops are normal in caliber. The appendix is unremarkable. There is no obstruction. Uterus and bladder are unremarkable. There are small cysts involving bilateral ovaries, largest on the left measuring 2.9 cm. No pelvic lymphadenopathy is seen. Bony structures are nonacute. IMPRESSION: 1. Hepatomegaly and hepatic steatosis. No discrete liver mass is seen. 2. Right renal cyst and bilateral ovarian cysts. No other significant abnormality is detected. Dictated by: Dictated on workstation # [id number]
== END ==
LOC: RAD 13:07
PROVIDERS: ATTEND Nurse Practitioner Family
DX: K76.0 Fatty (change of) liver, not elsewhere classified (principal); N83.201 Unspecified ovarian cyst, right side; N83.202 Unspecified ovarian cyst, left side; N28.1 Cyst of kidney, acquired; I10 Essential (primary) hypertension; E11.9 Type 2 diabetes mellitus without complications; Z90.49 Acquired absence of other specified parts of digestive tract
CPT/HCPCS: 74177

== ENCOUNTER 2018-02-06 10:42 | Outpatient (CLI) | payer OTHER ==
[~2018-02-06] VITALS: Ht 154.9 cm; Wt 94.8 kg
[~2018-02-06 10:42] MED LIST changes: -IOHEXOL 350 MG/ML 100 ML (OMNIPAQUE 350) VIAL IV ONE; -NS 250 ML (IVPB) BAG IV ONE; -RECEIVED CONTRAST (Hold Metformin) IV SCH
[2018-02-06] MEDS ORDERED: DAPA10TA PO (11:53)
== END 2018-02-06 11:48 | disposition home or self-care (01) ==
LOC: PREOP 10:42
PROVIDERS: ATTEND Surgery
DX: Z01.818 Encounter for other preprocedural examination (principal)

== ENCOUNTER 2018-02-10 08:52 | Day surgery (SDC) | payer OTHER ==
[~2018-02-10] VITALS: Ht 154.9 cm; Wt 94.8 kg
[~2018-02-10 08:52] MED LIST changes: +DAPA10TA PO
[2018-02-10 08:55] VITALS: BP 152/90
[2018-02-10] MEDS ORDERED: MIDAZOLAM 2 MG/2 ML (VERSED) VIAL IVP ONE ×2 (09:00→10:00)
[2018-02-10] MEDS ORDERED: fentaNYL INJECTION 100 MCG/2 ML AMP IVP ONE ×2 (09:00→10:00)
[2018-02-10] MEDS ORDERED: NS IV 500 ML 500 ML ONE (09:02)
--- NOTE | 2018-02-10 09:39 | History & Physicial ---
History of Present Illness History of Present Illness Reason for visit/HPI to undergo screening colonoscopy Date of Admission 02/10/18 Date Seen by a Provider: Feb 10, 2018 Time Seen by a Provider: 09:38 I consulted on this patient on 02/10/18 09:38 Attending Physician Kaylin Hansen MD Admitting Physician Angella Preston DO Consult Allergies and Home Medications Allergies Coded Allergies: hydrocodone (Verified Allergy, Unknown, 09/06/08) Sulfa (Sulfonamide Antibiotics) (Unverified Adverse Reaction, Unknown, ) Home Medications Budesonide/Formoterol Fumarate 10.2 Gm Hfa.aer.ad, 2 PUFF IH BID, (Reported) Dapagliflozin Propanediol 10 Mg Tablet, 10 MG PO DAILY, (Reported) Potassium Gluconate 99 Mg Tablet, 99 MG PO DAILY, (Reported) Patient Home Medication List Home Medication List Reviewed: Yes Past Spttcxn-Dgasbv-Drpmry Hx Patient Social History Marrital Status: single Employed/Student: employed Drug of Choice: former meth user Smoking Status: Current Everyday Smoker Type Used: Cigarettes Recent Foreign Travel: No Contact w/other who traveled: No Recent Hopitalizations: No Immunizations Up To Date Tetanus Booster (TDap): Unknown Pediatric: No Date of Pneumonia Vaccine: Nov 18, 2010 Date of Influenza Vaccine: Oct 19, 2017 Seasonal Allergies Seasonal Allergies: Yes Surgeries Yes (JAW) Gallbladder Respiratory Yes Currently Using CPAP: No Currently Using BIPAP: No Cardiovascular Yes Hypertension Neurological No Reproductive System Hx Reproductive Disorders: No Sexually Transmitted Disease: No HIV/AIDS: No Female Reproductive Disorders: Denies Genitourinary No Gastrointestinal No Musculoskeletal Yes Arthritis, Fractures Endocrine History of Endocrine Disorders: No Endocrine Disorders: Adrenal Disease, Hyperthyroidism HEENT History of HEENT Disorders: No Cancer No Psychosocial History of Psychiatric Problem: Yes Behavioral Health Disorders: Anxiety, Depression Integumentary History of Skin or Integumenta: No Blood Transfusions History of Blood Disorders: No Adverse Reaction to a Blood Tr: No Family Medical History Family Hx: Cancer 03 MOTHER Chest pain 03 FATHER 03 MOTHER Congestive heart failure 03 MOTHER Family history: Cardiovascular disease 03 FATHER Family history: Diabetes mellitus 03 FATHER 03 MOTHER Family history: Hypertension 03 FATHER 03 MOTHER Heart disease 03 FATHER History of - respiratory disease 03 FATHER 03 MOTHER Myocardial infarction 03 FATHER Stroke 03 MOTHER Review of Systems Constitutional: no symptoms reported EENTM: no symptoms reported Respiratory: no symptoms reported Cardiovascular: no symptoms reported Gastrointestinal: no symptoms reported Genitourinary: no symptoms reported Musculoskeletal: no symptoms reported Skin: no symptoms reported Psychiatric/Neurological: No Symptoms Reported Physical Exam Vital Signs Capillary Refill : Height, Weight, BMI Height: 5'1.00" Weight: 209lbs. 0.0oz. 94.533483jc; 39.5 BMI Method:Stated General Appearance: No Apparent Distress Neck: Normal Inspection Respiratory: Lungs Clear Cardiovascular: Regular Rate, Rhythm Gastrointestinal: Non Tender, Soft Rectal: Deferred Neurologic/Psychiatric: Alert, Oriented x3 Skin: Warm/Dry Assessment/Plan Assessment and Plan lady to undergo screening colonoscopy. Details discussed thoroughly. Seems to be in agreement to proceed Admission Diagnosis Admission Status: Other (Outpt Proc) KAYLIN HANSEN MD Feb 10, 2018 09:39
--- NOTE | 2018-02-10 09:40 | Conscious Sedation/ASA ---
Conscious Sedation Pre-Proced Time 09:39 ASA Score 2 For ASA 3 and 4: Consider anesthesia and medical clearance. Also, for patients with a history of failed moderate sedation consider anesthesia. Airway Lungs Heart ASA score ASA 1: a normal healthy patient ASA 2: a patient with a mild systemic disease (mid diabetes, controlled hypertension, obesity ASA 3: a patient with a severe systemic disease that limits activity (angina , COPD, prior Myocardial infarction) ASA 4: a patient with an incapacitating disease that is a constant threat to life (CHF, renal failure) ASA 5: a moribund patient not expected to survive 24 hrs. (ruptured aneurysm) ASA 6: a declared brain patient whose organs are being harvested. For emergent operations, add the letter E after the classification Mallampati Classification Grade 2 Sedation Plan Discussed options with patient/fam The patient is an appropriate candidate to undergo the planned procedure, sedation, and anesthesia. The patient immediately re-assessed prior to indication. KAYLIN NEWELL MD Feb 10, 2018 09:40
[2018-02-10] MEDS ORDERED: HURRICAINE EXT TUBE (BENZOCAINE) XX PRN (10:00)
[2018-02-10] MEDS ORDERED: MIDAZOLAM 2 MG/2 ML (VERSED) VIAL ONE ×5 (10:09)
[2018-02-10] MEDS ORDERED: fentaNYL INJECTION 100 MCG/2 ML AMP ONE ×2 (10:09)
[2018-02-10] MEDS ORDERED: HURRICAINE EXT TUBE (BENZOCAINE) ONE (10:09)
[2018-02-10] MEDS ORDERED: NS IV 500 ML 500 ML IV PRN (10:20)
--- NOTE | 2018-02-10 10:59 | Endo Procedure Record ---
Endo Procedure Report Date of Procedure Last Colonoscopy: No Feb 10, 2018 Surgeon (s) KAYLIN NEWELL MD Post Procedure/Op Diagnosis EGD: Distal esophageal stricture. Gastric and duodenal erosions. Colonoscopy: 3 mm distal rectal polyp. Sigmoid diverticulosis Procedure Performed EGD with antral biopsy for H. pylori Balloon dilatation of esophageal stricture Colonoscopy to cecum Snare polypectomy Description of Procedure Anesthesia Type: Conscious Sedation Specimen(s) collected/removed antral mucosa for H. pylori. Distal rectal polyp Description of the Procedure Indication for the procedures: This lady was scheduled to undergo screening colonoscopy. During the pre--endoscopy assessment, she requested an upper endoscopy to evaluate epigastric pain and occasional dysphagia. It appeared to be reasonable. Informed consent was obtained after reviewing the details of procedure and highlighting iatrogenic complications of perforation, post polypectomy bleeding etc. Description of the procedures: EGD/antral biopsy/balloon dilatation: She was placed in left lateral decubitus position and her vital signs were monitored. Conscious sedation was achieved using Versed and fentanyl. The flexible gastroscope was then introduced down the esophagus, past the stomach, into the proximal duodenum. Findings: Esophagus: A smooth, distal esophageal, concentric stricture. It was dilated to 18 mm with the balloon. Stomach: Multiple distal gastric erosions. Biopsy for H. pylori was obtained. Duodenum: Multiple erosions were found along the first part. She tolerated the procedure well and was turned around in preparation for colonoscopy. Impression: Epigastric discomfort and dysphagia. Distal esophageal stricture. Incidental gastric and duodenal erosions. H. pylori status pending. Colonoscopy/snare polypectomy: Digital rectal examination was unremarkable. The colonoscope was then introduced into the rectum and advanced all the way up to the cecum. It was then withdrawn slowly and the mucosa examined in a systematic fashion. Findings: 1. 3 mm pedunculated polyp at the distal rectum, that was snared and retrieved 2. Sigmoid diverticulosis. She tolerated the procedure well and was taken back to the nursing area in a stable condition. Impression: Screening colonoscopy. 3 mm rectal polyp excised. Recommend surveillance colonoscopy in 5 years. Copy Copies To 1: GERARDO CRAVEN XAVIER M MD Feb 10, 2018 10:59
--- NOTE | 2018-02-10 11:00 | Discharge Inst-Simple/Standard ---
Discharge Inst-Standard Discharge Medications New, Converted or Re-Newed RX: Other Patient Instructions/Follow Up Plan of Care/Instructions/FU: please call for Protonix 40 mg daily for 30 days with 3 refills to her pharmacy. Repeat colonoscopy in 5 years Activity as Tolerated: Yes Discharge Diet: No Restrictions KAYLIN NEWELL MD Feb 10, 2018 11:00
[2018-02-10 11:10] VITALS: BP 138/71
[2018-02-10 11:40] VITALS: BP 142/76
[2018-02-10 12:05] VITALS: BP 142/76
== END 2018-02-10 12:10 | disposition home or self-care (01) ==
LOC: ENDO 08:52
PROVIDERS: ATTEND Surgery
DX: Z12.11 Encounter for screening for malignant neoplasm of colon (principal); K22.2 Esophageal obstruction; K25.9 Gastric ulcer, unspecified as acute or chronic, without hemorrhage or perforation; K26.9 Duodenal ulcer, unspecified as acute or chronic, without hemorrhage or perforation; K62.1 Rectal polyp; K57.30 Diverticulosis of large intestine without perforation or abscess without bleeding; K31.89 Other diseases of stomach and duodenum; F17.210 Nicotine dependence, cigarettes, uncomplicated; I10 Essential (primary) hypertension; E05.90 Thyrotoxicosis, unspecified without thyrotoxic crisis or storm; F41.9 Anxiety disorder, unspecified; F32.9 Major depressive disorder, single episode, unspecified; Z88.5 Allergy status to narcotic agent; Z88.2 Allergy status to sulfonamides; Z79.899 Other long term (current) drug therapy
CPT/HCPCS: 84703

== ENCOUNTER → 2018-05-05 | Outpatient (CLI) | payer OTHER ==
[~2018-05-05] MED LIST changes: -LEVA0.6313 IH; +LEVA0.6334 IH
[2018-05-05 13:16] LABS: ALANINE AMINOTRANSFERASE 35 U/L (0-55); ALBUMIN 3.9 GM/DL (3.2-4.5); ALKALINE PHOSPHATASE 81 U/L (40-136); BILIRUBIN,TOTAL 0.4 MG/DL (0.1-1.0); BUN/CREATININE RATIO 12; CARBON DIOXIDE 21 MMOL/L (21-32); CHLORIDE 102 MMOL/L (98-107); CREATININE SERUM 0.81 MG/DL (0.60-1.30); GFR ESTIMATED > 60; GLUCOSE 170 MG/DL (70-105); POTASSIUM 3.7 MMOL/L (3.6-5.0); SODIUM 134 MMOL/L (135-145)
== END ==
LOC: LAB 12:43
PROVIDERS: ATTEND Family Medicine
DX: E11.9 Type 2 diabetes mellitus without complications (principal); I10 Essential (primary) hypertension
CPT/HCPCS: 36415; 80053; 83036

== ENCOUNTER → 2018-05-14 | Outpatient (CLI) | payer OTHER ==
--- NOTE | 2018-05-14 15:34 | Diagnostic Imaging Report ---
INDICATION: Low back spasms. TIME OF EXAM: 02:45 p.m. Three views of the lumbar spine were obtained. Curvature and alignment is normal. Vertebral body heights are maintained. No acute compression fracture is seen. Generalized lumbar spondylosis is seen with marginal spurring. IMPRESSION: Lumbar spondylosis. No acute bony abnormality is detected. Dictated by: Dictated on workstation # [id number]
== END ==
LOC: RAD 14:33
PROVIDERS: ATTEND Family Medicine
DX: M47.816 Spondylosis without myelopathy or radiculopathy, lumbar region (principal)
CPT/HCPCS: 72100

== ENCOUNTER 2018-09-10 15:39 | Emergency (ER) | payer OTHER ==
[~2018-09-10] VITALS: Ht 154.9 cm; Wt 99.8 kg
--- NOTE | 2018-09-10 16:02 | ED Upper Extremity ---
General Chief Complaint: Upper Extremity Stated Complaint: FINGER PAIN Nursing Triage Note: Pt ambulates to fast track with complaints of middle finger swelling on the right hand. Pt states she punched the side of a fridge. PT rates pain 4/10. Nursing Sepsis Screen: No Definite Risk Source: patient Exam Limitations: no limitations History of Present Illness Date Seen by Provider: Sep 10, 2018 Time Seen by Provider: 16:01 Initial Comments To ER by private vehicle with reports of right middle finger swelling that began about 45 minutes ago when she was attempting to throw something at home out of anger, hit the middle finger on the side (ulnar side) on the edge of the refrigerator. Onset: just prior to arrival Severity: moderate Pain/Injury Location: right 3rd finger Method of Injury: direct blow Modifying Factors: Worse With Movement Allergies and Home Medications Allergies Coded Allergies: hydrocodone (Verified Allergy, Unknown, 09/06/08) Sulfa (Sulfonamide Antibiotics) (Unverified Adverse Reaction, Unknown, 04/12/16) Home Medications Budesonide/Formoterol Fumarate 10.2 Gm Hfa.aer.ad, 2 PUFF IH BID, (Reported) Dapagliflozin Propanediol 10 Mg Tablet, 10 MG PO DAILY, (Reported) Potassium Gluconate 99 Mg Tablet, 99 MG PO DAILY, (Reported) Patient Home Medication List Home Medication List Reviewed: Yes Review of Systems Constitutional: see HPI EENTM: see HPI Respiratory: no symptoms reported Cardiovascular: no symptoms reported Genitourinary: no symptoms reported Musculoskeletal: see HPI Skin: no symptoms reported Psychiatric/Neurological: No Symptoms Reported Past Wgucdsj-Ddygta-Icmvps Hx Patient Social History Drug of Choice: former meth user Type Used: Cigarettes Recent Foreign Travel: No Contact w/Someone Who Travel: No Recent Infectious Disease Expo: No Recent Hopitalizations: No Immunizations Up To Date Tetanus Booster (TDap): Unknown PED Vaccines UTD: No Date of Pneumonia Vaccine: Nov 18, 2010 Date of Influenza Vaccine: Oct 19, 2017 Seasonal Allergies Seasonal Allergies: Yes Past Medical History Surgeries: Yes (JAW) Gallbladder Respiratory: Yes Asthma, Pneumonia, Chronic Bronchitis, COPD Currently Using CPAP: No Currently Using BIPAP: No Cardiac: Yes Hypertension Neurological: No Reproductive Disorders: No Female Reproductive Disorders: Denies Sexually Transmitted Disease: No HIV/AIDS: No Genitourinary: No Gastrointestinal: No Musculoskeletal: Yes Arthritis, Fractures Endocrine: No Adrenal Disease, Hyperthyroidism HEENT: No Cancer: No Psychosocial: Yes Anxiety, Depression Integumentary: No Blood Disorders: No Adverse Reaction/Blood Tranf: No Family Medical History Cancer 03 MOTHER Chest pain 03 FATHER 03 MOTHER Congestive heart failure 03 MOTHER Family history: Cardiovascular disease 03 FATHER Family history: Diabetes mellitus 03 FATHER 03 MOTHER Family history: Hypertension 03 FATHER 03 MOTHER Heart disease 03 FATHER History of - respiratory disease 03 FATHER 03 MOTHER Myocardial infarction 03 FATHER Stroke 03 MOTHER Physical Exam Vital Signs Vital Signs - First Documented 09/10/18 15:46 Temp 98.6 Pulse 72 Resp 18 B/P (MAP) 152/97 (115) O2 Delivery Room Air Capillary Refill : Less Than 3 Seconds Height, Weight, BMI Height: 5'1.00" Weight: 220lbs. 0.0oz. 99.405337ix; 39.5 BMI Method:Stated General Appearance: WD/WN, no apparent distress Neck: non-tender, full range of motion Respiratory: no respiratory distress, no accessory muscle use Shoulder: normal inspection, non-tender Elbow/Forearm: normal inspection, non-tender Wrist: Yes normal inspection, Yes non-tender Hand: Right, limited ROM (this pain at the proximal phalanx and PIP joint middle finger right hand. No open wounds. No obvious deformity. Normal capillary refill distally.) Neurologic/Psychiatric: alert, normal mood/affect, oriented x 3 Skin: normal color, warm/dry Progress/Results/Core Measures Results/Orders My Orders Orders - JAMIE STOKES APRN Hand, Right, 3 Views (09/10/18 15:59) Vital Signs/I&O 09/10/18 15:46 Temp 98.6 Pulse 72 Resp 18 B/P (MAP) 152/97 (115) O2 Delivery Room Air Blood Pressure Mean: 115 Departure Impression Primary Impression: Finger contusion Qualified Codes: S60.021A - Contusion of right index finger without damage to nail, initial encounter Disposition: 01 HOME, SELF-CARE Condition: Stable Departure-Patient Inst. Decision time for Depature: 16:17 Referrals: GERARDO CRAVEN DO (PCP/Family) Primary Care Physician Patient Instructions: Contusion (DC) Add. Discharge Instructions: Ice pack to the area, Tylenol and Motrin for pain. All discharge instructions reviewed with patient and/or family. Voiced understanding. JAMIE STOKES APRN Sep 10, 2018 16:02
--- NOTE | 2018-09-10 16:12 | Diagnostic Imaging Report ---
INDICATION: Pain status post trauma COMPARISON: None. FINDINGS: Three views of the right hand show no fractures, dislocations, or other acute bony abnormalities identified. Joint spaces are well maintained throughout. The soft tissues appear unremarkable. No radiopaque foreign bodies are identified. IMPRESSION: No acute fractures or dislocations of the right hand. Dictated by: Dictated on workstation # [id number]
[2018-09-10 16:20] VITALS: BP 152/97
--- OUTSIDE RECORDS SUMMARY | 2018-09-10 16:50 | XMS REPORT | Continuity of Care Document ---
Author Organization Unknown Address Unknown Allergies Active Description Code Type Severity Reaction Onset Reported/Identified Relationship to Patient Clinical Status Yes hydrocodone [id number] Drug Allergy Unknown N/A 09/06/2008 Yes Sulfa (Sulfonamide Antibiotics) [id number] Drug Allergy Unknown N/A 04/12/2016 Medications There is no data. Problems Date Dx Coded Attending Type Code Diagnosis Diagnosed By 05/19/2013 GERARDO PRESTON DO S Ot 244.9 HYPOTHYROIDISM NOS 05/19/2013 GERARDO PRESTON DO S Ot 255.9 ADRENAL DISORDER N0S 05/19/2013 AMMY PRESTON DOLINE S Ot 272.4 HYPERLIPIDEMIA NEC/NOS 05/19/2013 AMMY PRESTON DOLINE S Ot 300.00 ANXIETY STATE NOS 05/19/2013 AMMY PRESTON DOLINE S Ot 305.1 TOBACCO USE DISORDER 05/19/2013 AMMY PRESTON DOLINE S Ot 401.9 HYPERTENSION NOS 05/19/2013 AMMY PRESTON DOLINE S Ot 478.19 OTHER DISEASE OF NASAL CAVITY AND SINUSE 05/19/2013 AMMY PRESTON DOLINE S Ot 493.20 CHRONIC OBSTRUCTIVE ASTHMA, NOS 05/19/2013 AMMY PRESTON DOLINE S Ot 530.81 ESOPHAGEAL REFLUX 05/19/2013 AMMY PRESTON DOLINE S Ot 716.90 ARTHROPATHY NOS-UNSPEC 05/19/2013 AMMY PRESTON DOLINE S Ot 724.5 BACKACHE NOS 05/19/2013 AMMY PRESTON DOLINE S Ot 780.79 OTH MALAISE FATIGUE 05/19/2013 AMMY PRESTON DOLINE S Ot 786.50 CHEST PAIN NOS 03/09/2015 Ot F17.210 NICOTINE DEPENDENCE, CIGARETTES, UNCOMPL 03/09/2015 Ot K76.0 FATTY (CHANGE OF) LIVER, NOT ELSEWHERE C 03/09/2015 Ot M47.814 SPONDYLOSIS W/O MYELOPATHY OR RADICULOPA 03/09/2015 Ot S20.222A CONTUSION OF LEFT BACK WALL OF THORAX, I 03/09/2015 Ot W00.0XXA FALL ON SAME LEVEL DUE TO ICE AND SNOW, 03/09/[address] TO SINGLE-FAMILY (PRIVA 03/09/2015 Ot Y99.8 OTHER EXTERNAL CAUSE STATUS 03/22/2015 Ot F17.210 NICOTINE DEPENDENCE, CIGARETTES, UNCOMPL 03/22/2015 Ot S22.42XA MULTIPLE FRACTURES OF RIBS, LEFT SIDE, I 03/22/2015 Ot W19.XXXA UNSPECIFIED FALL, INITIAL ENCOUNTER 03/22/[address] IN UNSP NON-INSTITUT (PRIVATE 03/22/2015 Ot Y99.8 OTHER EXTERNAL CAUSE STATUS 04/11/2016 Ot 715.31 LOC OSTEOARTH NOS-SHLDER 04/11/2016 Ot 782.2 LOCAL SUPRFICIAL SWELLNG 04/11/2016 Ot 496 CHR AIRWAY OBSTRUCT NEC 04/11/2016 Ot V72.84 EXAM PRE-OPERATIVE NOS 04/11/2016 Ot 787.02 NAUSEA ALONE 04/11/2016 Ot V64.3 NO PROC FOR REASONS NEC 04/11/2016 Ot V76.51 SCREEN MAL NEOP- COLON 04/11/2016 Ot 789.00 ABDOMINAL PAIN, UNSPECIFIED SITE 04/11/2016 Ot 571.8 CHRONIC LIVER DIS NEC 04/11/2016 Ot 625.8 FEM GENITAL SYMPTOMS NEC 04/11/2016 Ot 789.1 HEPATOMEGALY 04/11/2016 Ot V72.84 EXAM PRE-OPERATIVE NOS 04/11/2016 BETONDTASIA DO, GERARDO S Ot 244.9 HYPOTHYROIDISM NOS 04/11/2016 BETONDER DO, GERARDO S Ot 611.71 MASTODYNIA 04/13/2016 ORENDTASIA DO, GERARDO S Ot F17.210 NICOTINE DEPENDENCE, CIGARETTES, UNCOMPL 04/13/2016 BETONDTASIA DOKARINGERARDO S Ot I10 ESSENTIAL (PRIMARY) HYPERTENSION 04/13/2016 BETONDER DO, GERARDO S Ot J20.9 ACUTE BRONCHITIS, UNSPECIFIED 04/13/2016 BETONDTASIA DOKARINGERARDO S Ot J44.0 CHRONIC OBSTRUCTIVE PULMON DISEASE W ACU 04/13/2016 BETONDER DO, GERARDO S Ot J44.1 CHRONIC OBSTRUCTIVE PULMONARY DISEASE W 01/31/2017 ORENDER DO, GERARDO S Ot E03.9 HYPOTHYROIDISM, UNSPECIFIED 01/31/2017 ORENDER DO, GERARDO S Ot E11.9 TYPE 2 DIABETES MELLITUS WITHOUT COMPLIC 02/06/2017 ORENDER DO, GERARDO S Ot E03.9 HYPOTHYROIDISM, UNSPECIFIED 02/06/2017 ORENDER DO, GERARDO S Ot E11.9 TYPE 2 DIABETES MELLITUS WITHOUT COMPLIC 06/02/2017 ORENDER DO, GERARDO S Ot E03.9 HYPOTHYROIDISM, UNSPECIFIED 06/02/2017 ORENDER DO, GERARDO S Ot E11.9 TYPE 2 DIABETES MELLITUS WITHOUT COMPLIC 06/02/2017 BABAK WEST PHARMACEUTICAL OPERATOR Ot E05.90 THYROTOXICOSIS, UNSP WITHOUT THYROTOXIC 06/02/2017 BABAK WESTP Ot F17.210 NICOTINE DEPENDENCE, CIGARETTES, UNCOMPL 06/02/2017 BABAK WEST PHARMACEUTICAL OPERATOR Ot I10 ESSENTIAL (PRIMARY) HYPERTENSION 06/02/2017 BABAK WESTP Ot J44.9 CHRONIC OBSTRUCTIVE PULMONARY DISEASE, U 06/02/2017 BABAK WESTP Ot R07.81 PLEURODYNIA 06/02/2017 BABAK WESTP Ot W19.XXXA UNSPECIFIED FALL, INITIAL ENCOUNTER 06/02/2017 BABAK WESTP Ot Z79.52 CORRECTION (CURRENT) USE OF SYSTEMIC STER 06/02/2017 BABAK WEST PHARMACEUTICAL OPERATOR Ot Z82.49 FAMILY HX OF ISCHEM HEART DIS AND OTH DI 06/02/2017 BABAK WESTP Ot Z86.39 PERSONAL HISTORY OF ENDO, NUTRITIONAL AN 06/02/2017 BABAK WEST PHARMACEUTICAL OPERATOR Ot Z87.01 PERSONAL HISTORY OF PNEUMONIA (RECURRENT 06/02/2017 BABAK WESTP Ot Z87.81 PERSONAL HISTORY OF (HEALED) TRAUMATIC F 06/02/2017 BABAK WESTP Ot Z88.2 ALLERGY STATUS TO SULFONAMIDES STATUS 06/02/2017 JENNA BABAK PHARMACEUTICAL OPERATOR Ot Z88.5 ALLERGY STATUS TO NARCOTIC AGENT STATUS 06/02/2017 BABAK WEST PHARMACEUTICAL OPERATOR Ot Z98.890 OTHER SPECIFIED POSTPROCEDURAL STATES 06/02/2017 ORENDER DO, GERARDO S Ot 244.9 HYPOTHYROIDISM NOS 06/02/2017 GERARDO PRESTON DO Ot 611.71 MASTODYNIA 06/04/2017 BABAK WEST Ot E05.90 THYROTOXICOSIS, UNSP WITHOUT THYROTOXIC 06/04/2017 BABAK WESTP Ot F17.210 NICOTINE DEPENDENCE, CIGARETTES, UNCOMPL 06/04/2017 BABAK WESTP Ot I10 ESSENTIAL (PRIMARY) HYPERTENSION 06/04/2017 BABAK WESTP Ot J44.9 CHRONIC OBSTRUCTIVE PULMONARY DISEASE, U 06/04/2017 BABAK WESTP Ot R07.81 PLEURODYNIA 06/04/2017 BABAK WESTP Ot W19.XXXA UNSPECIFIED FALL, INITIAL ENCOUNTER 06/04/2017 BABAK WEST Ot Z79.52 CORRECTION (CURRENT) USE OF SYSTEMIC STER 06/04/2017 BABAK WESTP Ot Z82.49 FAMILY HX OF ISCHEM HEART DIS AND OTH DI 06/04/2017 BABAK WESTP Ot Z86.39 PERSONAL HISTORY OF ENDO, NUTRITIONAL AN 06/04/2017 BABAK WESTP Ot Z87.01 PERSONAL HISTORY OF PNEUMONIA (RECURRENT 06/04/2017 BABAK WESTP Ot Z87.81 PERSONAL HISTORY OF (HEALED) TRAUMATIC F 06/04/2017 BABAK WESTP Ot Z88.2 ALLERGY STATUS TO SULFONAMIDES STATUS 06/04/2017 BABAK WEST PHARMACEUTICAL OPERATOR Ot Z88.5 ALLERGY STATUS TO NARCOTIC AGENT STATUS 06/04/2017 BABAK WEST PHARMACEUTICAL OPERATOR Ot Z98.890 OTHER SPECIFIED POSTPROCEDURAL STATES 06/07/2017 GERARDO PRESTON DO Ot E03.9 HYPOTHYROIDISM, UNSPECIFIED 06/07/2017 GERARDO PRESTON DO S Ot E11.9 TYPE 2 DIABETES MELLITUS WITHOUT COMPLIC 06/08/2017 BABAK WESTP Ot E05.90 THYROTOXICOSIS, UNSP WITHOUT THYROTOXIC 06/08/2017 BABAK WESTP Ot F17.210 NICOTINE DEPENDENCE, CIGARETTES, UNCOMPL 06/08/2017 BABAK WEST PHARMACEUTICAL OPERATOR Ot I10 ESSENTIAL (PRIMARY) HYPERTENSION 06/08/2017 BABAK WESTP Ot J44.9 CHRONIC OBSTRUCTIVE PULMONARY DISEASE, U 06/08/2017 BABAK WESTP Ot R07.81 PLEURODYNIA 06/08/2017 BABAK WEST Ot W19.XXXA UNSPECIFIED FALL, INITIAL ENCOUNTER 06/08/2017 BABAK WESTP Ot Z79.52 CORRECTION (CURRENT) USE OF SYSTEMIC STER 06/08/2017 JENNA BABAK CHINP Ot Z82.49 FAMILY HX OF ISCHEM HEART DIS AND OTH DI 06/08/2017 JENNA BABAK CHINP Ot Z86.39 PERSONAL HISTORY OF ENDO, NUTRITIONAL AN 06/08/2017 JENNABABAK Armendariz PHARMACEUTICAL OPERATOR Ot Z87.01 PERSONAL HISTORY OF PNEUMONIA (RECURRENT 06/08/2017 JENNA BABAK CHINP Ot Z87.81 PERSONAL HISTORY OF (HEALED) TRAUMATIC F 06/08/2017 JENNABABAK Armendariz PHARMACEUTICAL OPERATOR Ot Z88.2 ALLERGY STATUS TO SULFONAMIDES STATUS 06/08/2017 JENNA, BABAK PHARMACEUTICAL OPERATOR Ot Z88.5 ALLERGY STATUS TO NARCOTIC AGENT STATUS 06/08/2017 JENNA BABAK CHINP Ot Z98.890 OTHER SPECIFIED POSTPROCEDURAL STATES 06/19/2017 ORENDER DO, GERARDO S Ot E03.9 HYPOTHYROIDISM, UNSPECIFIED 06/19/2017 ORENDER DO, GERARDO S Ot E11.9 TYPE 2 DIABETES MELLITUS WITHOUT COMPLIC 01/20/2018 ORENDER DO, GERARDO S Ot 244.9 HYPOTHYROIDISM NOS 01/20/2018 ORENDER DO, GERARDO S Ot 611.71 MASTODYNIA 01/20/2018 ORENDER DO, GERARDO S Ot E03.9 HYPOTHYROIDISM, UNSPECIFIED 01/20/2018 ORENDER DO, GERARDO S Ot E11.9 TYPE 2 DIABETES MELLITUS WITHOUT COMPLIC 02/06/[address], KAYLIN Roman Ot Z01.818 ENCOUNTER FOR OTHER PREPROCEDURAL EXAMIN 02/06/[address], KAYLIN Roman Ot Z01.818 ENCOUNTER FOR OTHER PREPROCEDURAL EXAMIN 02/06/[address], KAYLIN Roman Ot Z01.818 ENCOUNTER FOR OTHER PREPROCEDURAL EXAMIN 02/10/[address], KAYLIN Roman Ot E05.90 THYROTOXICOSIS, UNSP WITHOUT THYROTOXIC 02/10/[address], KAYLIN Roman Ot F17.210 NICOTINE DEPENDENCE, CIGARETTES, UNCOMPL 02/10/[address], KAYLIN Roman Ot F32.9 MAJOR DEPRESSIVE DISORDER, SINGLE EPISOD 02/10/[address], KAYLIN Roman Ot F41.9 ANXIETY DISORDER, UNSPECIFIED 02/10/2018 KAYLIN NEWELL MD Ot I10 ESSENTIAL (PRIMARY) HYPERTENSION 02/10/2018 KAYLIN NEWELL MD Ot K22.2 ESOPHAGEAL OBSTRUCTION 02/10/2018 KAYLIN NEWELL MD Ot K25.9 GASTRIC ULCER, UNSP ACUTE OR CHRONIC, 02/10/2018 KAYLIN NEWELL MD Ot K26.9 DUODENAL ULCER, UNSP ACUTE OR CHRONIC 02/10/2018 KAYLIN NEWELL MD Ot K31.89 OTHER DISEASES OF STOMACH AND DUODENUM 02/10/2018 KAYLIN NEWELL MD Ot K57.30 DVRTCLOS OF LG INT W/O PERFORATION OR AB 02/10/2018 KAYLIN NEWELL MD Ot K62.1 RECTAL POLYP 02/10/2018 KAYLIN NEWELL MD Ot Z12.11 ENCOUNTER FOR SCREENING FOR MALIGNANT NE 02/10/2018 KAYLIN NEWELL MD Ot Z79.899 OTHER CORRECTION (CURRENT) DRUG THERAPY 02/10/2018 KAYLIN NEWELL MD Ot Z88.2 ALLERGY STATUS TO SULFONAMIDES STATUS 02/10/2018 KAYLIN NEWELL MD Ot Z88.5 ALLERGY STATUS TO NARCOTIC AGENT STATUS 02/14/2018 KAYLIN NEWELL MD Ot E05.90 THYROTOXICOSIS, UNSP WITHOUT THYROTOXIC 02/14/2018 KAYLIN NEWELL MD Ot F17.210 NICOTINE DEPENDENCE, CIGARETTES, UNCOMPL 02/14/2018 KAYLIN NEWELL MD Ot F32.9 MAJOR DEPRESSIVE DISORDER, SINGLE EPISOD 02/14/2018 KAYLIN NEWELL MD Ot F41.9 ANXIETY DISORDER, UNSPECIFIED 02/14/2018 KAYLIN NEWELL MD Ot I10 ESSENTIAL (PRIMARY) HYPERTENSION 02/14/2018 KAYLIN NEWELL MD Ot K22.2 ESOPHAGEAL OBSTRUCTION 02/14/2018 KAYLIN NEWELL MD Ot K25.9 GASTRIC ULCER, UNSP ACUTE OR CHRONIC, 02/14/2018 KAYLIN NEWELL MD Ot K26.9 DUODENAL ULCER, UNSP ACUTE OR CHRONIC 02/14/2018 KAYLIN NEWELL MD Ot K31.89 OTHER DISEASES OF STOMACH AND DUODENUM 02/14/2018 KAYLIN NEWELL MD, Ot K57.30 DVRTCLOS OF LG INT W/O PERFORATION OR AB 02/14/2018 KAYLIN NEWELL MD, Ot K62.1 RECTAL POLYP 02/14/2018 KAYLIN NEWELL MD, Ot Z12.11 ENCOUNTER FOR SCREENING FOR MALIGNANT NE 02/14/2018 KAYLIN NEWELL MD, Ot Z79.899 OTHER POLICE OR [employer] OFFICER (CURRENT) DRUG THERAPY 02/14/2018 KAYLIN NEWELL MD, Ot Z88.2 ALLERGY STATUS TO SULFONAMIDES STATUS 02/14/2018 KAYLIN NEWELL MD, Ot Z88.5 ALLERGY STATUS TO NARCOTIC AGENT STATUS 05/14/2018 BETONDKARIN DOZIER DOQUELINE S Ot M47.816 SPONDYLOSIS W/O MYELOPATHY OR RADICULOPA 05/22/2018 BETONDER DO GERARDO S Ot E11.9 TYPE 2 DIABETES MELLITUS WITHOUT COMPLIC 05/22/2018 BETONDER DO GERARDO S Ot I10 ESSENTIAL (PRIMARY) HYPERTENSION 05/28/2018 BETONDTASIA KRUEGER GERARDO S Ot M47.816 SPONDYLOSIS W/O MYELOPATHY OR RADICULOPA 07/31/2018 BETONDER DO GERARDO S Ot E03.9 HYPOTHYROIDISM, UNSPECIFIED 07/31/2018 ORENDER DO GERARDO S Ot E11.9 TYPE 2 DIABETES MELLITUS WITHOUT COMPLIC Procedures There is no data. Results Test Result Range Comprehensive metabolic panel - 04/11/16 22:25 Serum or plasma sodium measurement (moles/volume) 136 mmol/L 135-145 Serum or plasma potassium measurement (moles/volume) 3.6 mmol/L 3.6-5.0 Serum or plasma chloride measurement (moles/volume) 102 mmol/L 98-107 Carbon dioxide 23 mmol/L 21-32 Serum or plasma anion gap determination (moles/volume) 11 mmol/L 5-14 Serum or plasma urea nitrogen measurement (mass/volume) 9 mg/dL 7-18 Serum or plasma creatinine measurement (mass/volume) 0.83 mg/dL 0.60-1.30 Serum or plasma urea nitrogen/creatinine mass ratio 11 NRG Serum or plasma creatinine measurement with calculation of estimated glomerular filtration rate > NRG Serum or plasma glucose measurement (mass/volume) 177 mg/dL 70-105 Serum or plasma calcium measurement (mass/volume) 9.0 mg/dL 8.5-10.1 Serum or plasma total bilirubin measurement (mass/volume) 0.3 mg/dL 0.1-1.0 Serum or plasma alkaline phosphatase measurement (enzymatic activity/volume) 91 U/L 40-136 Serum or plasma aspartate aminotransferase measurement (enzymatic activity/volume) 24 U/L 5-34 Serum or plasma alanine aminotransferase measurement (enzymatic activity/volume) 24 U/L 0-55 Serum or plasma protein measurement (mass/volume) 7.1 g/dL 6.4-8.2 Serum or plasma albumin measurement (mass/volume) 3.9 g/dL 3.2-4.5 Lipase - 04/11/16 22:25 Lipase 13 U/L 8-78 Complete blood count (CBC) with automated white blood cell (WBC) differential - 04/11/16 22:25 Blood leukocytes automated count (number/volume) 9.6 10*3/uL 4.3-11.0 Blood erythrocytes automated count (number/volume) 4.64 10*6/uL 4.35-5.85 Venous blood hemoglobin measurement (mass/volume) 14.5 g/dL 11.5-16.0 Blood hematocrit (volume fraction) 44 % 35-52 Automated erythrocyte mean corpuscular volume 96 [foz_us] 80-99 Automated erythrocyte mean corpuscular hemoglobin (mass per erythrocyte) 31 pg 25-34 Automated erythrocyte mean corpuscular hemoglobin concentration measurement (mass/volume) 33 g/dL 32-36 Automated erythrocyte distribution width ratio 14.9 % 10.0- 14.5 Automated blood platelet count (count/volume) 283 10*3/uL 130-400 Automated blood platelet mean volume measurement 12.0 [foz_us] 7.4-10.4 Automated blood neutrophils/100 leukocytes 74 % 42-75 Automated blood lymphocytes/100 leukocytes 17 % 12-44 Blood monocytes/100 leukocytes 6 % 0-12 Automated blood eosinophils/100 leukocytes 3 % 0-10 Automated blood basophils/100 leukocytes 0 % 0-10 Blood neutrophils automated count (number/volume) 7.1 10*3 1.8-7.8 Blood lymphocytes automated count (number/volume) 1.6 10*3 1.0-4.0 Blood monocytes automated count (number/volume) 0.6 10*3 0.0- 1.0 Automated eosinophil count 0.3 10*3/uL 0.0-0.3 Automated blood basophil count (count/volume) 0.0 10*3/uL 0.0-0.1 Bacterial blood culture - 04/11/16 22:25 Bacterial blood culture NG NRG Magnesium - 04/11/16 22:29 Magnesium 2.1 mg/dL 1.8-2.4 Bacterial blood culture - 04/12/16 05:30 Bacterial blood culture NG NRG Complete urinalysis with reflex to culture - 04/12/16 17:05 Urine color determination YELLOW NRG Urine clarity determination CLEAR NRG Urine pH measurement by test strip 5 5-9 Specific gravity of urine by test strip 1.015 1.016-1.022 Urine protein assay by test strip, semi-quantitative NEGATIVE NEGATIVE Urine glucose detection by automated test strip 4+ NEGATIVE Erythrocytes detection in urine sediment by light microscopy 1+ NEGATIVE Urine ketones detection by automated test strip NEGATIVE NEGATIVE Urine nitrite detection by test strip NEGATIVE NEGATIVE Urine total bilirubin detection by test strip NEGATIVE NEGATIVE Urine urobilinogen measurement by automated test strip (mass/volume) NORMAL NORMAL Urine leukocyte esterase detection by dipstick NEGATIVE NEGATIVE Automated urine sediment erythrocyte count by microscopy (number/high power field) NONE NRG Automated urine sediment leukocyte count by microscopy (number/high power field) NONE NRG Bacteria detection in urine sediment by light microscopy NEGATIVE NRG Crystals detection in urine sediment by light microscopy NONE NRG Casts detection in urine sediment by light microscopy NONE NRG Mucus detection in urine sediment by light microscopy NEGATIVE NRG Complete urinalysis with reflex to culture NO NRG Comprehensive metabolic panel - 01/24/17 12:55 Serum or plasma sodium measurement (moles/volume) 137 mmol/L 135-145 Serum or plasma potassium measurement (moles/volume) 3.9 mmol/L 3.6-5.0 Serum or plasma chloride measurement (moles/volume) 104 mmol/L 98-107 Carbon dioxide 24 mmol/L 21-32 Serum or plasma anion gap determination (moles/volume) 9 mmol/L 5-14 Serum or plasma urea nitrogen measurement (mass/volume) 10 mg/dL 7-18 Serum or plasma creatinine measurement (mass/volume) 0.78 mg/dL 0.60-1.30 Serum or plasma urea nitrogen/creatinine mass ratio 13 NRG Serum or plasma creatinine measurement with calculation of estimated glomerular filtration rate > NRG Serum or plasma glucose measurement (mass/volume) 114 mg/dL 70-105 Serum or plasma calcium measurement (mass/volume) 9.2 mg/dL 8.5-10.1 Serum or plasma total bilirubin measurement (mass/volume) 0.3 mg/dL 0.1-1.0 Serum or plasma alkaline phosphatase measurement (enzymatic activity/volume) 92 U/L 40-136 Serum or plasma aspartate aminotransferase measurement (enzymatic activity/volume) 32 U/L 5-34 Serum or plasma alanine aminotransferase measurement (enzymatic activity/volume) 33 U/L 0-55 Serum or plasma protein measurement (mass/volume) 8.0 g/dL 6.4-8.2 Serum or plasma albumin measurement (mass/volume) 4.1 g/dL 3.2-4.5 THYROID STIMULATING HORMONE - 01/24/17 12:55 THYROID STIMULATING HORMONE 4.40 u[iU]/mL 0.35-4.94 Hemoglobin A1c - 01/24/17 12:55 Hemoglobin A1c 8.0 % 4.5-6.2 Complete blood count (CBC) with automated white blood cell (WBC) differential - 06/06/17 08:34 Blood leukocytes automated count (number/volume) 11.7 10*3/uL 4.3-11.0 Blood erythrocytes automated count (number/volume) 5.14 10*6/uL 4.35-5.85 Venous blood hemoglobin measurement (mass/volume) 16.4 g/dL 11.5-16.0 Blood hematocrit (volume fraction) 49 % 35-52 Automated erythrocyte mean corpuscular volume 95 [foz_us] 80-99 Automated erythrocyte mean corpuscular hemoglobin (mass per erythrocyte) 32 pg 25-34 Automated erythrocyte mean corpuscular hemoglobin concentration measurement (mass/volume) 34 g/dL 32-36 Automated erythrocyte distribution width ratio 15.1 % 10.0- 14.5 Automated blood platelet count (count/volume) 315 10*3/uL 130-400 Automated blood platelet mean volume measurement 11.1 [foz_us] 7.4-10.4 Automated blood neutrophils/100 leukocytes 64 % 42-75 Automated blood lymphocytes/100 leukocytes 26 % 12-44 Blood monocytes/100 leukocytes 7 % 0-12 Automated blood eosinophils/100 leukocytes 3 % 0-10 Automated blood basophils/100 leukocytes 0 % 0-10 Blood neutrophils automated count (number/volume) 7.4 10*3 1.8-7.8 Blood lymphocytes automated count (number/volume) 3.0 10*3 1.0-4.0 Blood monocytes automated count (number/volume) 0.8 10*3 0.0- 1.0 Automated eosinophil count 0.4 10*3/uL 0.0-0.3 Automated blood basophil count (count/volume) 0.0 10*3/uL 0.0-0.1 Comprehensive metabolic panel - 06/06/17 08:34 Serum or plasma sodium measurement (moles/volume) 135 mmol/L 135-145 Serum or plasma potassium measurement (moles/volume) 4.0 mmol/L 3.6-5.0 Serum or plasma chloride measurement (moles/volume) 105 mmol/L 98-107 Carbon dioxide 21 mmol/L 21-32 Serum or plasma anion gap determination (moles/volume) 9 mmol/L 5-14 Serum or plasma urea nitrogen measurement (mass/volume) 11 mg/dL 7-18 Serum or plasma creatinine measurement (mass/volume) 0.80 mg/dL 0.60-1.30 Serum or plasma urea nitrogen/creatinine mass ratio 14 NRG Serum or plasma creatinine measurement with calculation of estimated glomerular filtration rate > NRG Serum or plasma glucose measurement (mass/volume) 134 mg/dL 70-105 Serum or plasma calcium measurement (mass/volume) 9.0 mg/dL 8.5-10.1 Serum or plasma total bilirubin measurement (mass/volume) 0.7 mg/dL 0.1-1.0 Serum or plasma alkaline phosphatase measurement (enzymatic activity/volume) 82 U/L 40-136 Serum or plasma aspartate aminotransferase measurement (enzymatic activity/volume) 26 U/L 5-34 Serum or plasma alanine aminotransferase measurement (enzymatic activity/volume) 25 U/L 0-55 Serum or plasma protein measurement (mass/volume) 7.5 g/dL 6.4-8.2 Serum or plasma albumin measurement (mass/volume) 4.3 g/dL 3.2-4.5 THYROID STIMULATING HORMONE - 06/06/17 08:34 THYROID STIMULATING HORMONE 4.21 u[iU]/mL 0.35-4.94 Serum or plasma thyroxine (T4) free measurement (mass/volume) - 06/06/17 08:34 Serum or plasma thyroxine (T4) free measurement (mass/volume) 0.97 ng/dL 0.70-1.48 Hemoglobin A1c - 06/06/17 08:34 Blood hemoglobin A1C measurement (mass/volume) 7.1 % 4.0-5.6 MEAN BLOOD GLUCOSE 157 % <=126 Urine microalbumin measurement by test strip (mass/volume) - 06/06/17 08:34 Urine creatinine measurement (mass/volume) 112 % NRG Microalbumin [mass/volume] in urine 14.3 % 0.0-20.0 Microalbumin/creatinine [ratio] in urine 12.8 mg/g{Cre} 0.0- 30.0 Complete blood count (CBC) with automated white blood cell (WBC) differential - 01/17/18 11:00 Blood leukocytes automated count (number/volume) 12.2 10*3/uL 4.3-11.0 Blood erythrocytes automated count (number/volume) 5.23 10*6/uL 4.35-5.85 Venous blood hemoglobin measurement (mass/volume) 16.8 g/dL 11.5-16.0 Blood hematocrit (volume fraction) 51 % 35-52 Automated erythrocyte mean corpuscular volume 97 [foz_us] 80-99 Automated erythrocyte mean corpuscular hemoglobin (mass per erythrocyte) 32 pg 25-34 Automated erythrocyte mean corpuscular hemoglobin concentration measurement (mass/volume) 33 g/dL 32-36 Automated erythrocyte distribution width ratio 15.2 % 10.0- 14.5 Automated blood platelet count (count/volume) 331 10*3/uL 130-400 Automated blood platelet mean volume measurement 11.2 [foz_us] 7.4-10.4 Automated blood neutrophils/100 leukocytes 58 % 42-75 Automated blood lymphocytes/100 leukocytes 33 % 12-44 Blood monocytes/100 leukocytes 6 % 0-12 Automated blood eosinophils/100 leukocytes 3 % 0-10 Automated blood basophils/100 leukocytes 0 % 0-10 Blood neutrophils automated count (number/volume) 7.0 10*3 1.8-7.8 Blood lymphocytes automated count (number/volume) 4.0 10*3 1.0-4.0 Blood monocytes automated count (number/volume) 0.7 10*3 0.0- 1.0 Automated eosinophil count 0.4 10*3/uL 0.0-0.3 Automated blood basophil count (count/volume) 0.1 10*3/uL 0.0-0.1 Comprehensive metabolic panel - 01/17/18 11:00 Serum or plasma sodium measurement (moles/volume) 137 mmol/L 135-145 Serum or plasma potassium measurement (moles/volume) 4.1 mmol/L 3.6-5.0 Serum or plasma chloride measurement (moles/volume) 102 mmol/L 98-107 Carbon dioxide 23 mmol/L 21-32 Serum or plasma anion gap determination (moles/volume) 12 mmol/L 5-14 Serum or plasma urea nitrogen measurement (mass/volume) 11 mg/dL 7-18 Serum or plasma creatinine measurement (mass/volume) 0.81 mg/dL 0.60-1.30 Serum or plasma urea nitrogen/creatinine mass ratio 14 NRG Serum or plasma creatinine measurement with calculation of estimated glomerular filtration rate > NRG Serum or plasma glucose measurement (mass/volume) 171 mg/dL 70-105 Serum or plasma calcium measurement (mass/volume) 9.6 mg/dL 8.5-10.1 Serum or plasma total bilirubin measurement (mass/volume) 0.4 mg/dL 0.1-1.0 Serum or plasma alkaline phosphatase measurement (enzymatic activity/volume) 81 U/L 40-136 Serum or plasma aspartate aminotransferase measurement (enzymatic activity/volume) 19 U/L 5-34 Serum or plasma alanine aminotransferase measurement (enzymatic activity/volume) 25 U/L 0-55 Serum or plasma protein measurement (mass/volume) 7.8 g/dL 6.4-8.2 Serum or plasma albumin measurement (mass/volume) 4.3 g/dL 3.2-4.5 CALCIUM CORRECTED 9.4 mg/dL 8.5-10.1 Serum or plasma amylase measurement (enzymatic activity/volume) - 01/17/18 11:00 Serum or plasma amylase measurement (enzymatic activity/volume) 74 U/L 25-125 Lipase - 01/17/18 11:00 Lipase 16 U/L 8-78 Hemoglobin A1c - 01/17/18 11:00 Blood hemoglobin A1C measurement (mass/volume) 7.1 % 4.0-5.6 MEAN BLOOD GLUCOSE 157 % <=126 Urine beta human chorionic gonadotropin (hCG) measurement - 02/10/18 09:00 Urine beta human chorionic gonadotropin (hCG) measurement NEGATIVE NEGATIVE Comprehensive metabolic panel - 05/05/18 12:52 Serum or plasma sodium measurement (moles/volume) 134 mmol/L 135-145 Serum or plasma potassium measurement (moles/volume) 3.7 mmol/L 3.6-5.0 Serum or plasma chloride measurement (moles/volume) 102 mmol/L 98-107 Carbon dioxide 21 mmol/L 21-32 Serum or plasma anion gap determination (moles/volume) 11 mmol/L 5-14 Serum or plasma urea nitrogen measurement (mass/volume) 10 mg/dL 7-18 Serum or plasma creatinine measurement (mass/volume) 0.81 mg/dL 0.60-1.30 Serum or plasma urea nitrogen/creatinine mass ratio 12 NRG Serum or plasma creatinine measurement with calculation of estimated glomerular filtration rate > NRG Serum or plasma glucose measurement (mass/volume) 170 mg/dL 70-105 Serum or plasma calcium measurement (mass/volume) 9.0 mg/dL 8.5-10.1 Serum or plasma total bilirubin measurement (mass/volume) 0.4 mg/dL 0.1-1.0 Serum or plasma alkaline phosphatase measurement (enzymatic activity/volume) 81 U/L 40-136 Serum or plasma aspartate aminotransferase measurement (enzymatic activity/volume) 27 U/L 5-34 Serum or plasma alanine aminotransferase measurement (enzymatic activity/volume) 35 U/L 0-55 Serum or plasma protein measurement (mass/volume) 7.0 g/dL 6.4-8.2 Serum or plasma albumin measurement (mass/volume) 3.9 g/dL 3.2-4.5 CALCIUM CORRECTED 9.1 mg/dL 8.5-10.1 Hemoglobin A1c - 05/05/18 12:52 Blood hemoglobin A1C measurement (mass/volume) 7.1 % 4.0-5.6 MEAN BLOOD GLUCOSE 157 % <=126 Encounters ACCT No. Visit Date/Time Discharge Status Pt. Type Provider Facility Loc./Unit Complaint [id number] 06/13/2016 11:12:20 06/13/2016 23:59:59 [facility] Outpatient MABLE DORADO 03/201708/15/2018 10:21:28 08/15/2018 23:59:59 [facility] Outpatient Gerardo Preston [id number] 05/14/2018 14:33:00 05/14/2018 23:59:59 CLS Outpatient GERARDO PRESTON DO S [facility] RAD MYALGIA [id number] 05/05/2018 12:43:00 05/05/2018 23:59:59 CLS Outpatient AMMY PRESTON DOLINE S [facility] LAB HTN [id number] 02/10/2018 08:52:00 02/10/2018 12:10:00 DIS Outpatient KAYLIN NEWELL MD [facility] ENDO SCREENING [id number] 02/06/2018 10:42:00 02/06/2018 11:48:00 DIS Outpatient KAYLIN NEWELL MD [facility] PREOP COLONOSCOPY [id number] 01/20/2018 13:07:00 01/20/2018 23:59:59 CLS Outpatient MARY JAMES APRN [facility] RAD RUQ PAIN, CHANGE IN BOWEL HABITS [id number] 01/17/2018 10:49:00 01/17/2018 23:59:59 CLS Outpatient MARY JAMES APRN [facility] LAB ABDOMINAL PAIN, TYPE 2 DIABETES, HTN [id number] 06/06/2017 08:19:00 06/06/2017 23:59:59 CLS Outpatient GERARDO PRESTON DO S [facility] LAB TYPE 2 DIABETES THYROID [id number] 06/02/2017 15:39:00 06/02/2017 16:53:00 DIS 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, R SIDE PAIN [id number] 01/24/2017 12:40:00 01/24/2017 23:59:59 CLS Outpatient AMMY PRESTON DOLINE S [facility] LAB DMII, HYPOTHYROIDISM [id number] 04/11/2016 23:55:00 04/13/2016 14:02:00 DIS Inpatient KARIN PRESTON DOQUELINE S [facility] 4TH ACUTE COPD EXACERBATION/ACUTE BRONCHITIS [id number] 05/18/2013 22:03:00 05/19/2013 10:50:00 DIS Inpatient KARIN PRESTON DOQUELINE S [facility] ICU CHEST PAIN [id number] 08/26/2012 07:39:00 08/26/2012 23:59:59 CLS Outpatient GERARDO PRESTON DO [facility] RAD LT BREAST PAIN [id number] 08/13/2012 09:48:00 08/13/2012 23:59:59 CLS Outpatient GERARDO PRESTON DO S [facility] RAD HYPOTHYROIDISM [id number] 03/22/2015 16:25:00 Document Registration [id number] 03/09/2015 18:26:00 Document Registration [id number] 07/23/2011 06:11:00 Document Registration [id number] 07/20/2011 08:34:00 Document Registration [id number] 05/18/2011 08:02:00 Document Registration [id number] 04/26/2011 09:01:00 Document Registration [id number] 04/20/2011 12:38:00 Document Registration [id number] 12/15/2010 12:09:00 Document Registration [id number] 11/14/2010 09:33:00 Document Registration
== END 2018-09-10 16:20 | disposition home or self-care (01) ==
LOC: EDUNIT# 15:39 → ER 15:40
DX: S60.021A Contusion of right index finger without damage to nail, initial encounter (principal); J44.9 Chronic obstructive pulmonary disease, unspecified; I10 Essential (primary) hypertension; E05.90 Thyrotoxicosis, unspecified without thyrotoxic crisis or storm; F41.9 Anxiety disorder, unspecified; F32.9 Major depressive disorder, single episode, unspecified; Z87.01 Personal history of pneumonia (recurrent); Z88.5 Allergy status to narcotic agent; Z88.2 Allergy status to sulfonamides; Z82.49 Family history of ischemic heart disease and other diseases of the circulatory system; W22.8XXA Striking against or struck by other objects, initial encounter; Y92.009 Unspecified place in unspecified non-institutional (private) residence as the place of occurrence of the external cause
CPT/HCPCS: 73130

== ENCOUNTER 2018-09-28 01:32 | Emergency (ER) | payer SELFPAY ==
[~2018-09-28] VITALS: Ht 154.9 cm; Wt 100.7 kg
--- NOTE | 2018-09-28 02:27 | ED Respiratory ---
General Stated Complaint: SORE THROAT, HEADACHE , COUGH Source: patient, spouse Exam Limitations: no limitations History of Present Illness Date Seen by Provider: Sep 28, 2018 Time Seen by Provider: 02:17 Initial Comments Patient presents to ER by private conveyance with chief complaint of 10 days sore throat cough fever last 2 days. She's not taken any antipyretics tonight. She has a history of COPD smokes about packs per day. She'sbeen taking Symbicort every day but she says she does not want to use it recently because he is afraid it might open her lungs so that the infection would go further down into her lungs. She's been using ypfw-sqf-dvpksrh medications for her sore throat. She's having no pain in her throat and nowhere else. No history of coronary disease. She does not use oxygen. She has not been to see anyone for this yet. 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 No dysuria abdominal pain nausea vomiting sweats or chills. Allergies and Home Medications Allergies Coded Allergies: hydrocodone (Verified Allergy, Unknown, 09/06/08) Sulfa (Sulfonamide Antibiotics) (Unverified Adverse Reaction, Unknown, 04/12/16) Home Medications Budesonide/Formoterol Fumarate 10.2 Gm Hfa.aer.ad, 2 PUFF IH BID, (Reported) Dapagliflozin Propanediol 10 Mg Tablet, 10 MG PO DAILY, (Reported) Potassium Gluconate 99 Mg Tablet, 99 MG PO DAILY, (Reported) Patient Home Medication List Home Medication List Reviewed: Yes Review of Systems Review of Systems Constitutional: chills; No diaphoresis; fever EENTM: No ear discharge, No ear pain Respiratory: cough, phlegm, short of breath Cardiovascular: No chest pain, No palpitations Gastrointestinal: No abdominal pain, No nausea Genitourinary: No discharge, No dysuria Musculoskeletal: No back pain, No joint pain Past Mncktbo-Dgnowi-Fcxuev Hx Patient Social History Alcohol Use: Denies Use Recreational Drug Use: No Drug of Choice: former meth user Smoking Status: Current Everyday Smoker Type Used: Cigarettes 2nd Hand Smoke Exposure: No Recent Foreign Travel: No Contact w/Someone Who Travel: No Recent Hopitalizations: No Immunizations Up To Date Tetanus Booster (TDap): Unknown PED Vaccines UTD: No Date of Pneumonia Vaccine: Nov 18, 2010 Date of Influenza Vaccine: Oct 19, 2017 Seasonal Allergies Seasonal Allergies: Yes Past Medical History Surgeries: Yes (JAW) Gallbladder Respiratory: Yes Asthma, Pneumonia, Chronic Bronchitis, COPD Currently Using CPAP: No Currently Using BIPAP: No Cardiac: Yes Hypertension Neurological: No Reproductive Disorders: No Female Reproductive Disorders: Denies Sexually Transmitted Disease: No HIV/AIDS: No Genitourinary: No Gastrointestinal: No Musculoskeletal: Yes Arthritis, Fractures Endocrine: No ( borderline diabetes) Adrenal Disease, Hyperthyroidism HEENT: No Cancer: No Psychosocial: Yes Anxiety, Depression Integumentary: No Blood Disorders: No Adverse Reaction/Blood Tranf: No Family Medical History Cancer 03 MOTHER Chest pain 03 FATHER 03 MOTHER Congestive heart failure 03 MOTHER Family history: Cardiovascular disease 03 FATHER Family history: Diabetes mellitus 03 FATHER 03 MOTHER Family history: Hypertension 03 FATHER 03 MOTHER Heart disease 03 FATHER History of - respiratory disease 03 FATHER 03 MOTHER Myocardial infarction 03 FATHER Stroke 03 MOTHER Physical Exam Vital Signs - First Documented 09/28/18 09/28/18 02:10 02:17 Temp 98.2 Pulse 83 Resp 20 B/P (MAP) 175/100 (125) Pulse Ox 96 O2 Delivery Room Air Capillary Refill : Height: 5'1.00" Weight: 220lbs. 0.0oz. 99.943968vo; 39.5 BMI Method:Stated General Appearance: WD/WN, mild distress Eyes: Bilateral Eye Normal Inspection, Bilateral Eye PERRL, Bilateral Eye EOMI HEENT: PERRL/EOMI, normal ENT inspection, TMs normal, pharynx normal, pharyngeal erythema; No tonsillar exudate Neck: non-tender, full range of motion, supple, normal inspection, other (bilateral anterior cervical lymphadenopathy, shoddy mildly tender) Respiratory: chest non-tender, no respiratory distress, no accessory muscle use, wheezing (few expiratory wheezes) Cardiovascular: normal peripheral pulses, regular rate, rhythm Gastrointestinal: normal bowel sounds, non tender, soft Extremities: non-tender, normal capillary refill Neurologic/Psychiatric: alert, normal mood/affect, oriented x 3 Skin: normal color, warm/dry Progress/Results/Core Measures Suspected Sepsis SIRS Temperature: Pulse: Respiratory Rate: Laboratory Tests 09/28/18 02:38: White Blood Count 13.5H Blood Pressure / Mean: Laboratory Tests 09/28/18 02:38: Creatinine 0.93, Platelet Count 286, Total Bilirubin 0.2 Results/Orders Lab Results Laboratory Tests Test 09/28/18 02:20 09/28/18 02:38 Range/Units Group A Streptococcus Screen NEGATIVE NEGATIVE White Blood Count 13.5 H 4.3-11.0 10^3/uL Red Blood Count 4.53 4.35-5.85 10^6/uL Hemoglobin 14.2 11.5-16.0 G/DL Hematocrit 44 35-52 % Mean Corpuscular Volume 97 80-99 FL Mean Corpuscular Hemoglobin 31 25-34 PG Mean Corpuscular Hemoglobin Concent 32 32-36 G/DL Red Cell Distribution Width 14.7 H 10.0-14.5 % Platelet Count 286 130-400 10^3/uL Mean Platelet Volume 11.3 H 7.4-10.4 FL Neutrophils (%) (Auto) 55 42-75 % Lymphocytes (%) (Auto) 35 12-44 % Monocytes (%) (Auto) 6 0-12 % Eosinophils (%) (Auto) 4 0-10 % Basophils (%) (Auto) 0 0-10 % Neutrophils # (Auto) 7.4 1.8-7.8 X 10^3 Lymphocytes # (Auto) 4.7 H 1.0-4.0 X 10^3 Monocytes # (Auto) 0.8 0.0-1.0 X 10^3 Eosinophils # (Auto) 0.6 H 0.0-0.3 10^3/uL Basophils # (Auto) 0.1 0.0-0.1 10^3/uL Sodium Level 140 135-145 MMOL/L Potassium Level 3.7 3.6-5.0 MMOL/L Chloride Level 104 98-107 MMOL/L Carbon Dioxide Level 20 L 21-32 MMOL/L Anion Gap 16 H 5-14 MMOL/L Blood Urea Nitrogen 9 7-18 MG/DL Creatinine 0.93 0.60-1.30 MG/DL Estimat Glomerular Filtration Rate > 60 BUN/Creatinine Ratio 10 Glucose Level 263 H 70-105 MG/DL Calcium Level 9.4 8.5-10.1 MG/DL Corrected Calcium 9.4 8.5-10.1 MG/DL Total Bilirubin 0.2 0.1-1.0 MG/DL Aspartate Amino Transf (AST/SGOT) 14 5-34 U/L Alanine Aminotransferase (ALT/SGPT) 22 0-55 U/L Alkaline Phosphatase 116 40-136 U/L C-Reactive Protein High Sensitivity 2.20 H 0.00-0.50 MG/DL B-Type Natriuretic Peptide 14.9 <100.0 PG/ML Total Protein 7.4 6.4-8.2 GM/DL Albumin 4.0 3.2-4.5 GM/DL Monoscreen NEGATIVE NEGATIVE My Orders Orders - MAGAN SAMUEL BNP (09/28/18 02:22) Cbc With Automated Diff (09/28/18 02:22) Comprehensive Metabolic Panel (09/28/18 02:22) Hs C Reactive Protein (09/28/18 02:22) Monotest (09/28/18 02:22) Rapid Strep A Screen (09/28/18 02:22) Albuterol/Ipra Inhalation Soln (Duoneb I (09/28/18 02:30) Chest Pa/Lat (2 View) (09/28/18 02:22) Svn Small Volume Nebulizer (09/28/18 02:22) Medications Given in ED Current Medications Medications Dose Ordered Sig/John Route Start Time Stop Time Status Last Admin Dose Admin Albuterol/ Ipratropium 3 ml ONCE ONCE INH 09/28/18 02:30 09/28/18 02:31 DC 09/28/18 02:36 3 ML Vital Signs/I&O 09/28/18 09/28/18 09/28/18 02:10 02:10 02:17 Temp 98.2 Pulse 83 Resp 20 B/P (MAP) 175/100 (125) Pulse Ox 96 O2 Delivery Room Air Room Air Room Air Capillary Refill : Progress Note : Time: 02:31 Progress Note Faint x-ray wheezes heard. We'll give her breathing treatment and reassess. Chest x-ray basic labs. Diagnostic Imaging Diagonstic Imaging: Xray Plain Films/CT/US/NM/MRI: chest (2v) Comments COPD. No acute cardiopulmonary processes. Reviewed: Reviewed by Me Departure Impression Primary Impression: Bronchitis Additional Impression: Acute exacerbation of chronic obstructive pulmonary disease (COPD) Disposition: 01 HOME, SELF-CARE Condition: Stable Departure-Patient Inst. Decision time for Depature: 03:22 Referrals: GERARDO CRAVEN DO (PCP/Family) Primary Care Physician Patient Instructions: Acute Bronchitis, Adult (DC), Exacerbation of COPD Add. Discharge Instructions: Drink plenty of fluids. Use salt water gargles for your sore throat or sprays and lozenges as necessary. If you have fever or bodyaches you can use Tylenol and/or ibuprofen. Start using the albuterol inhaler every 6 hours egedjf-sae-odsba for the next week or 2 until your symptoms improve. 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 Follow-up with your primary care provider for reevaluation. Scripts Albuterol Sulfate (PROAIR HFA) 1 Puff Puff 2 PUFF IH Q4H PRN for COUGH, #1 EA 0 Refills 1 PUFF = 90 MCG Prov: MAGAN SAMUEL 09/28/18 Prednisone (Prednisone) 20 Mg Tab 40 MG PO DAILY for 5 Days, #10 TAB 0 Refills Prov: MAGAN SAMUEL 09/28/18 Work/School Note: Work Release Form Date Seen in the Emergency Department: Sep 28, 2018 Return to Work: Sep 29, 2018 Restrictions: No Restrictions MAGAN SAMUEL Sep 28, 2018 02:27
[2018-09-28] MEDS ORDERED: RT-ALBUTEROL/IPRATROPIUM 3 ML (DUONEB) VIAL INH ONE (02:30)
[2018-09-28 02:44] LABS: BASOPHILS # (AUTO) 0.1 10^3/uL (0.0-0.1); BASOPHILS % (AUTO) 0 % (0-10); EOSINOPHILS # (AUTO) 0.6 10^3/uL (0.0-0.3); EOSINOPHILS % (AUTO) 4 % (0-10); HEMATOCRIT 44 % (35-52); HEMOGLOBIN 14.2 G/DL (11.5-16.0); LYMPHOCYTES # (AUTO) 4.7 X 10^3 (1.0-4.0); LYMPHOCYTES % (AUTO) 35 % (12-44); MEAN CORPUSCULAR HEMOGLOBIN 31 PG (25-34); MEAN CORPUSCULAR HGB CONC 32 G/DL (32-36); MEAN CORPUSCULAR VOLUME 97 FL (80-99); MEAN PLATELET VOLUME 11.3 FL (7.4-10.4); MONOCYTES # (AUTO) 0.8 X 10^3 (0.0-1.0); MONOCYTES % (AUTO) 6 % (0-12); NEUTROPHILS # (AUTO) 7.4 X 10^3 (1.8-7.8); NEUTROPHILS % (AUTO) 55 % (42-75); PLATELET COUNT 286 10^3/uL (130-400); RED CELL DISTRIBUTION WIDTH 14.7 % (10.0-14.5); WHITE BLOOD COUNT 13.5 10^3/uL (4.3-11.0)
[2018-09-28 03:01] LABS: ALANINE AMINOTRANSFERASE 22 U/L (0-55); ALKALINE PHOSPHATASE 116 U/L (40-136); BILIRUBIN,TOTAL 0.2 MG/DL (0.1-1.0); BUN/CREATININE RATIO 10; CALCIUM 9.4 MG/DL (8.5-10.1); CARBON DIOXIDE 20 MMOL/L (21-32); CHLORIDE 104 MMOL/L (98-107); CREATININE SERUM 0.93 MG/DL (0.60-1.30); GFR ESTIMATED > 60; GLUCOSE 263 MG/DL (70-105); POTASSIUM 3.7 MMOL/L (3.6-5.0); SODIUM 140 MMOL/L (135-145); TOTAL PROTEIN 7.4 GM/DL (6.4-8.2)
[2018-09-28] MEDS ORDERED: RT-ALBUINH IH (03:24)
[2018-09-28] MEDS ORDERED: PRD20T PO (03:24)
[2018-09-28] MEDS ORDERED: methylPREDNISolone 40 MG/ML (DEPO MEDROL) VIAL IM ONE (03:30)
[2018-09-28 03:35] VITALS: BP 169/99
--- NOTE | 2018-09-28 06:28 | Diagnostic Imaging Report ---
EXAMINATION: PA and lateral chest at 3:20 AM INDICATION: Cough The heart size is within normal limits and stable when compared to 04/11/2016. There are mild chronic pulmonary changes present but there is no sign of an acute abnormality. There is no evidence for failure, pneumonia or for a pleural effusion. The mediastinum is not widened. The osseous structures are intact. Healed displaced rib fractures on the left are again noted. IMPRESSION: There is no evidence for active disease. Dictated by: Dictated on workstation # [id number]
== END 2018-09-28 03:36 | disposition home or self-care (01) ==
LOC: EDUNIT# 01:32 → ER 01:34
DX: J44.1 Chronic obstructive pulmonary disease with (acute) exacerbation (principal); J45.909 Unspecified asthma, uncomplicated; I10 Essential (primary) hypertension; E05.90 Thyrotoxicosis, unspecified without thyrotoxic crisis or storm; F41.9 Anxiety disorder, unspecified; F32.9 Major depressive disorder, single episode, unspecified; F17.210 Nicotine dependence, cigarettes, uncomplicated; Z87.01 Personal history of pneumonia (recurrent); Z88.2 Allergy status to sulfonamides; Z88.5 Allergy status to narcotic agent; Z82.49 Family history of ischemic heart disease and other diseases of the circulatory system
CPT/HCPCS: 36415; 71046; 80053; 83880; 85025; 86141; 86308; 87430; 94640

== ENCOUNTER → 2019-03-19 | Outpatient (CLI) | payer OTHER ==
[~2019-03-19] MED LIST changes: +RT-ALBUINH IH
[2019-03-19 10:30] LABS: BASOPHILS % (AUTO) 0 % (0-10); EOSINOPHILS # (AUTO) 0.4 10^3/uL (0.0-0.3); EOSINOPHILS % (AUTO) 3 % (0-10); HEMATOCRIT 47 % (35-52); HEMOGLOBIN 15.5 G/DL (11.5-16.0); LYMPHOCYTES # (AUTO) 3.7 X 10^3 (1.0-4.0); LYMPHOCYTES % (AUTO) 27 % (12-44); MEAN CORPUSCULAR HEMOGLOBIN 32 PG (25-34); MEAN CORPUSCULAR HGB CONC 33 G/DL (32-36); MEAN CORPUSCULAR VOLUME 97 FL (80-99); MEAN PLATELET VOLUME 11.6 FL (7.4-10.4); MONOCYTES # (AUTO) 0.9 X 10^3 (0.0-1.0); MONOCYTES % (AUTO) 6 % (0-12); NEUTROPHILS # (AUTO) 8.6 X 10^3 (1.8-7.8); NEUTROPHILS % (AUTO) 63 % (42-75); PLATELET COUNT 320 10^3/uL (130-400); RED CELL DISTRIBUTION WIDTH 15.2 % (10.0-14.5); WHITE BLOOD COUNT 13.6 10^3/uL (4.3-11.0)
[2019-03-19 10:58] LABS: ALANINE AMINOTRANSFERASE 37 U/L (0-55); ALBUMIN 4.3 GM/DL (3.2-4.5); ALKALINE PHOSPHATASE 103 U/L (40-136); BILIRUBIN,TOTAL 0.6 MG/DL (0.1-1.0); BUN/CREATININE RATIO 9; CALCIUM 9.4 MG/DL (8.5-10.1); CARBON DIOXIDE 23 MMOL/L (21-32); CHLORIDE 103 MMOL/L (98-107); CHOLESTEROL 202 MG/DL (< 200); CREATININE SERUM 0.78 MG/DL (0.60-1.30); GFR ESTIMATED > 60; GLUCOSE 169 MG/DL (70-105); HDL CHOLESTEROL 39 MG/DL (40-60); POTASSIUM 4.4 MMOL/L (3.6-5.0); SODIUM 138 MMOL/L (135-145); TOTAL PROTEIN 7.5 GM/DL (6.4-8.2); TRIGLYCERIDES 224 MG/DL (<150); VLDL CHOLESTEROL 45 MG/DL (5-40)
== END ==
LOC: LAB 10:06
PROVIDERS: ATTEND Internal Medicine Endocrinology, Diabetes & Metabolism
DX: Z00.00 Encounter for general adult medical examination without abnormal findings (principal); E11.9 Type 2 diabetes mellitus without complications; I10 Essential (primary) hypertension
CPT/HCPCS: 36415; 80053; 80061; 83036; 84443; 85025

== ENCOUNTER → 2019-03-23 | Outpatient (CLI) | payer OTHER ==
--- NOTE | 2019-03-24 12:14 | Diagnostic Imaging Report ---
INDICATION: Routine screening. COMPARISON: Comparison is made with prior mammograms from 08/26/2012 and 08/12/2007. TECHNIQUE: 2-D and 3-D bilateral screening mammography was performed. The current study was also evaluated with a Computer Aided Detection (CAD) system. 3-D tomosynthesis was also performed and reviewed. FINDINGS: Scattered fibroglandular densities are identified bilaterally. The parenchymal pattern is stable. No mass or malignant-appearing microcalcifications are seen. Axillae are unremarkable. IMPRESSION: No mammographic features suspicious for malignancy are identified. ACR BI-RADS Category 1: Negative. Result letter will be mailed to the patient. Note: At least 10% of breast cancer is not imaged by mammography. Dictated by: Dictated on workstation # [id number]
== END ==
LOC: RAD 15:04
PROVIDERS: ATTEND Nurse Practitioner Family
DX: Z12.31 Encounter for screening mammogram for malignant neoplasm of breast (principal)
CPT/HCPCS: 77067

== ENCOUNTER 2019-06-28 10:31 | Emergency (ER) | payer OTHER ==
[~2019-06-28] VITALS: Ht 154.9 cm; Wt 97.1 kg
[2019-06-28] MEDS ORDERED: ACETAMINOPHEN 500 MG TAB (TYLENOL) PO ONE (10:45)
[2019-06-28] MEDS ORDERED: IBUPROFEN 800 MG (MOTRIN) TAB PO ONE (10:45)
[2019-06-28] MEDS ORDERED: METH-313 PO (10:53)
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
[2019-06-28 11:52] VITALS: BP 172/83
== END 2019-06-28 11:52 | disposition home or self-care (01) ==
LOC: EDUNIT# 10:31 → ER 10:32
DX: S16.1XXA Strain of muscle, fascia and tendon at neck level, initial encounter (principal); S40.021A Contusion of right upper arm, initial encounter; S20.01XA Contusion of right breast, initial encounter; J44.9 Chronic obstructive pulmonary disease, unspecified; I10 Essential (primary) hypertension; Z88.5 Allergy status to narcotic agent; Z88.2 Allergy status to sulfonamides; Z79.52 Long term (current) use of systemic steroids; Z82.49 Family history of ischemic heart disease and other diseases of the circulatory system; V89.2XXA Person injured in unspecified motor-vehicle accident, traffic, initial encounter
CPT/HCPCS: 72125; 73100

== ENCOUNTER → 2019-07-02 | Outpatient (CLI) | payer OTHER ==
[~2019-07-02] MED LIST changes: +METH-313 PO
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
== END ==
LOC: RAD 11:55
PROVIDERS: ATTEND Family Medicine
DX: S20.01XA Contusion of right breast, initial encounter (principal); M47.816 Spondylosis without myelopathy or radiculopathy, lumbar region; M41.84 Other forms of scoliosis, thoracic region; M54.40 Lumbago with sciatica, unspecified side; V89.2XXA Person injured in unspecified motor-vehicle accident, traffic, initial encounter
CPT/HCPCS: 72072; 72100

== ENCOUNTER → 2019-08-12 | Outpatient (CLI) | payer OTHER ==
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
== END ==
LOC: RAD 10:02
PROVIDERS: ATTEND Nurse Practitioner Family
DX: S20.01XA Contusion of right breast, initial encounter (principal)